=== PATIENT | male | born 1955 | race Caucasian/White ===

== ENCOUNTER 2017-08-30 12:13 | Emergency (ER) | payer OTHER ==
[~2017-08-30] VITALS: Ht 170.2 cm; Wt 65.8 kg
[2017-08-30 12:38] LABS: BASOPHILS ABSOLUTE AUTO 0.06 K/mm3 (0.00-0.23); BASOPHILS PERCENT AUTO 1 % (0-2); EOSINOPHILS ABSOLUTE AUTO 0.22 K/mm3 (0.00-0.68); EOSINOPHILS PERCENT AUTO 2 % (0-6); Hematocrit 41.2 % (37.0-53.0); Hemoglobin 13.4 g/dL (13.5-17.5); IMMATURE GRAN ABSOLUTE AUTO 0.02 K/mm3 (0.00-0.10); IMMATURE GRAN PERCENT AUTO 0 % (0-1); LYMPHOCYTES ABSOLUTE AUTO 2.14 K/mm3 (0.84-5.20); LYMPHOCYTES PERCENT AUTO 20 % (21-46); MONOCYTES ABSOLUTE AUTO 1.29 K/mm3 (0.16-1.47); MONOCYTES PERCENT AUTO 12 % (4-13); Mean Corpuscular HGB Conc 32.5 g/dL (31.5-36.5); Mean Corpuscular Volume 92 fL (80-100); Mean Platelet Volume 9.8 fL (9.1-12.4); NEUTROPHILS ABSOLUTE AUTO 7.17 K/mm3 (1.96-9.15); NEUTROPHILS PERCENT AUTO 66 % (41-73); Platelet Count 312 K/mm3 (150-400); RDW Coefficient Variation 12.1 % (11.7-14.2); RDW Standard Deviation 41.8 fL (35.1-46.3); Red Blood Cell Count 4.46 M/mm3 (4.30-5.90)
[2017-08-30 12:51] LABS: International Normalized Ratio 1.01; Prothrombin Time Results 10.5 Sec (9.7-11.5)
[2017-08-30 13:05] LABS: Alanine Aminotransfer (ALT/SGP 27 U/L (12-78); Albumin, Blood 4.6 g/dL (3.4-5.0); Albumin/Globulin Ratio 1.2 (0.8-1.8); Alk Phos 83 U/L (50-136); Anion Gap 7 mmol/L (6-16); Aspartate Aminotrans (AST/SGOT 31 U/L (12-37); Bilirubin, Total 0.7 mg/dL (0.1-1.0); Blood Urea Nitrogen 50 mg/dL (8-24); Bun/Creatinine Ratio 34.5 (12.0-20.0); CO2, Blood 34 mmol/L (21-32); Calcium, Blood 9.9 mg/dL (8.5-10.1); Chloride, Blood 100 mmol/L (98-108); Creatinine, Blood 1.45 mg/dL (0.60-1.20); Ethanol (Alcohol), Blood, Med <3 mg/dL; Globulin, Blood 3.8 g/dL (2.2-4.0); Glomerular Filtration Rate 53 (60-); Glucose, Blood 87 mg/dL (70-99); Sodium, Blood 141 mmol/L (136-145); Total Protein, Blood 8.4 g/dL (6.4-8.2)
== END 2017-08-30 15:28 | disposition home or self-care (01) ==
LOC: ER 12:13
PROVIDERS: Emergency Medicine
DX: S70.02XA Contusion of left hip, initial encounter (principal); S09.90XA Unspecified injury of head, initial encounter; S29.9XXA Unspecified injury of thorax, initial encounter; J44.9 Chronic obstructive pulmonary disease, unspecified; F41.9 Anxiety disorder, unspecified; V00.811A Fall from moving wheelchair (powered), initial encounter; Y92.410 Unspecified street and highway as the place of occurrence of the external cause
CPT/HCPCS: 36415; 70450; 71260; 72125; 74177; 80053; 83690; 85025; 85610; 85730; 86850; 86900; 86901; 99284; G0480; Q9967

== ENCOUNTER 2023-06-29 23:25 | Inpatient (IN) | payer MEDICARE, OTHER ==
[~2023-06-29] VITALS: Ht 165.1 cm; Wt 53.0 kg
[~2023-06-29 23:25] MED LIST: MUPIROCIN15 GM TOP; PRED20 PO
[2023-06-29 23:47] LABS: Bicarbonate Venous 43.5 mmol/L (24.0-30.0); PCO2 Venous > 104 mmHg (38-42); pH Blood Venous 7.29 (7.34-7.37)
[2023-06-29 23:48] LABS: Base Excess Venous 24.9 mmol/L
[2023-06-30 00:09] LABS: BASOPHILS ABSOLUTE AUTO 0.02 K/mm3 (0.00-0.23); BASOPHILS PERCENT AUTO 0 % (0-2); EOSINOPHILS ABSOLUTE AUTO 0.21 K/mm3 (0.00-0.68); EOSINOPHILS PERCENT AUTO 3 % (0-6); Hematocrit 38.8 % (37.0-53.0); Hemoglobin 11.5 g/dL (13.5-17.5); IMMATURE GRAN ABSOLUTE AUTO 0.02 K/mm3 (0.00-0.10); IMMATURE GRAN PERCENT AUTO 0 % (0-1); LYMPHOCYTES ABSOLUTE AUTO 1.24 K/mm3 (0.84-5.20); LYMPHOCYTES PERCENT AUTO 16 % (21-46); MONOCYTES ABSOLUTE AUTO 0.77 K/mm3 (0.16-1.47); MONOCYTES PERCENT AUTO 10 % (4-13); Mean Corpuscular HGB 30.1 pg (26.0-34.0); Mean Corpuscular HGB Conc 29.6 g/dL (31.5-36.5); Mean Corpuscular Volume 102 fL (80-100); Mean Platelet Volume 10.2 fL (9.1-12.4); NEUTROPHILS ABSOLUTE AUTO 5.58 K/mm3 (1.96-9.15); NEUTROPHILS PERCENT AUTO 71 % (41-73); Platelet Count 204 K/mm3 (150-400); RDW Coefficient Variation 11.9 % (11.7-14.2); RDW Standard Deviation 44.5 fL (35.1-46.3); Red Blood Cell Count 3.82 M/mm3 (4.30-5.90); White Blood Cell Count 7.84 K/mm3 (4.00-11.30)
[2023-06-30 00:40] LABS: Magnesium, Blood 2.1 mg/dL (1.6-2.4)
[2023-06-30 01:00] LABS: Alanine Aminotransfer (ALT/SGP 39 U/L (12-78); Albumin, Blood 3.7 g/dL (3.4-5.0); Alk Phos 76 U/L (50-136); Anion Gap Unable to Calculate mmol/L (6-16); Aspartate Aminotrans (AST/SGOT 28 U/L (12-37); Bilirubin, Total 0.2 mg/dL (0.1-1.0); Blood Urea Nitrogen 26 mg/dL (8-24); Bun/Creatinine Ratio 36.1 (12.0-20.0); CO2, Blood >45 mmol/L (21-32); Calcium, Blood 9.4 mg/dL (8.5-10.1); Chloride, Blood 92 mmol/L (98-108); Creatinine, Blood 0.72 mg/dL (0.60-1.20); Globulin, Blood 3.7 g/dL (2.2-4.0); Glomerular Filtration Rate 101 (60-); Glucose, Blood 124 mg/dL (70-99); Potassium, Blood 4.7 mmol/L (3.5-5.5); Sodium, Blood 139 mmol/L (136-145); Total Protein, Blood 7.4 g/dL (6.4-8.2)
--- NOTE | 2023-06-30 03:30 | NUR ---
ADMISSION REPORT RECIEVED FROM ER NURSE. PATIENT ARRIVES TO PCU ON BIPAP. TRANSFERRED TO PCU BED WITH ASSISTANCE OF ER NURSE, RT AND PCU STAFF. PATIENT ALERT AND ORIENTED x4, ANSWERING ALL QUESTIONS APPROPRIATELY. PATIENT WILL GET ANXIOUS AT TIMES BUT IS EASILY REDIRECTABLE. BP STABLE, TELE READING ST 100s. ON BIPAP WITH SPO2 >95. ORIENTED TO ROOM AND CALL LIGHT SYSTEM. SON AT BEDSIDE.
[2023-06-30 03:37] VITALS: BP 133/93
[2023-06-30] MEDS ORDERED: B-12500 MC2 PO (03:43)
[2023-06-30] MEDS ORDERED: Atarax10 MG PO (03:44)
[2023-06-30] MEDS ORDERED: ESCI10 PO (03:45)
[2023-06-30] MEDS ORDERED: THERA-D2000 UNIT PO (03:46)
[2023-06-30 05:40] LABS: Adenovirus Not Detected (NOT DETECT); Bordetella pertussis Not Detected (NOT DETECT); Chlamydophila pneumoniae Not Detected (NOT DETECT); Coronavirus 229E Not Detected (NOT DETECT); Coronavirus HKU1 Not Detected (NOT DETECT); Coronavirus NL63 Not Detected (NOT DETECT); Coronavirus OC43 Not Detected (NOT DETECT); Human Metapneumovirus Not Detected (NOT DETECT); Human Rhinovirus/Enterovirus Not Detected (NOT DETECT); Influenza A/2009-H1 Not Detected (NOT DETECT); Influenza A/H1 Not Detected (NOT DETECT); Influenza A/H3 Not Detected (NOT DETECT); Influenza B Not Detected (NOT DETECT); Mycoplasma pneumoniae Not Detected (NOT DETECT); Parainfluenza Virus 1 Not Detected (NOT DETECT); Parainfluenza Virus 2 Not Detected (NOT DETECT); Parainfluenza Virus 3 Not Detected (NOT DETECT); Parainfluenza Virus 4 Not Detected (NOT DETECT); Respiratory Syncytial Virus Not Detected (NOT DETECT); SARS-Cov-2 (COVID-19), BioFire Not Detected (NOT DETECT)
--- NOTE | 2023-06-30 06:07 | NUR ---
SHIFT SUMMARY PATIENT ALERT AND ORIENTED, ABLE TO MAKE NEEDS KNOWN TO STAFF. SON AT BEDSIDE. BP STABLE, PATIENT ON BIPAP SINCE ADMISSION, TOLERATING WELL, SPO2 >95%. NO CHANGES SINCE ADMISSION, SEE PREVIOUS NOTE. BED IN LOW POSITION, CALL LIGHT IN REACH.
[2023-06-30 07:06] LABS: Base Excess Venous 25.4 mmol/L; Bicarbonate Venous 46.7 mmol/L (24.0-30.0); PCO2 Venous 60.1 mmHg (38-42); pH Blood Venous 7.51 (7.34-7.37)
[2023-06-30 07:12] LABS: BASOPHILS ABSOLUTE AUTO 0.01 K/mm3 (0.00-0.23); BASOPHILS PERCENT AUTO 0 % (0-2); EOSINOPHILS PERCENT AUTO 0 % (0-6); Hematocrit 34.6 % (37.0-53.0); Hemoglobin 10.7 g/dL (13.5-17.5); IMMATURE GRAN ABSOLUTE AUTO 0.02 K/mm3 (0.00-0.10); IMMATURE GRAN PERCENT AUTO 0 % (0-1); LYMPHOCYTES ABSOLUTE AUTO 0.52 K/mm3 (0.84-5.20); LYMPHOCYTES PERCENT AUTO 7 % (21-46); MONOCYTES ABSOLUTE AUTO 0.06 K/mm3 (0.16-1.47); MONOCYTES PERCENT AUTO 1 % (4-13); Mean Corpuscular HGB 30.3 pg (26.0-34.0); Mean Corpuscular HGB Conc 30.9 g/dL (31.5-36.5); Mean Corpuscular Volume 98 fL (80-100); Mean Platelet Volume 10.3 fL (9.1-12.4); NEUTROPHILS ABSOLUTE AUTO 7.45 K/mm3 (1.96-9.15); NEUTROPHILS PERCENT AUTO 93 % (41-73); Platelet Count 198 K/mm3 (150-400); RDW Standard Deviation 43.6 fL (35.1-46.3); Red Blood Cell Count 3.53 M/mm3 (4.30-5.90); White Blood Cell Count 8.06 K/mm3 (4.00-11.30)
[2023-06-30 07:34] LABS: Albumin, Blood 3.6 g/dL (3.4-5.0); Bilirubin, Total 0.3 mg/dL (0.1-1.0); Bun/Creatinine Ratio 47.7 (12.0-20.0); Calcium, Blood 9.5 mg/dL (8.5-10.1); Creatinine, Blood 0.61 mg/dL (0.60-1.20); Globulin, Blood 3.7 g/dL (2.2-4.0); Potassium, Blood 5.6 mmol/L (3.5-5.5); Total Protein, Blood 7.3 g/dL (6.4-8.2)
[2023-06-30 07:49] VITALS: BP 107/70
[2023-06-30 12:13] VITALS: BP 122/78
--- NOTE | 2023-06-30 12:51 | NUR ---
CALL TO AT 1145 DUE TO T WAVE CHANGE ON ECG. ORDERS GIVEN FOR N/S AT 100ML/HOUR. EKG DONE AT BEDSIDE.
[2023-06-30 12:54] LABS: Bun/Creatinine Ratio 47.7 (12.0-20.0); Calcium, Blood 9.7 mg/dL (8.5-10.1); Creatinine, Blood 0.65 mg/dL (0.60-1.20); Potassium, Blood 5.4 mmol/L (3.5-5.5)
[2023-06-30 16:34] VITALS: BP 147/86
--- NOTE | 2023-06-30 18:13 | NUR ---
SHIFT SUMMARY PT A/AOX4. PT POLITE AND COOPERATIVE WITH CARE BUT FORGETS LIMITATIONS. VSS. PT EASILY AGITATED. PT WITH ONE EPISODE OF PANIC ATTACK PT REPORTS OCCURS FREQUENTLY. STAFF SUPPORTED PT WITH THERAPEUTIC TECHNIQUES. PT REPORTS HAS PANIC ATTACKS AT BASELINE. PT WITH N/S RUNNING AT 100ML/HR. NO ACUTE CHANGES. BREATHING EVEN AND UNLABORED AT REST.
[2023-06-30 19:30] VITALS: BP 119/81
[2023-06-30 23:07] VITALS: BP 118/76
[2023-07-01 04:50] VITALS: BP 131/86
[2023-07-01 05:15] LABS: Bun/Creatinine Ratio 49.8 (12.0-20.0); Calcium, Blood 9.3 mg/dL (8.5-10.1); Creatinine, Blood 0.62 mg/dL (0.60-1.20); Potassium, Blood 4.9 mmol/L (3.5-5.5)
--- NOTE | 2023-07-01 06:29 | NUR ---
SHIFT SUMMARY PATIENT ALERT, ORIENTED x3-4. ANXIOUS AT TIMES, ABLE TO MAKE NEEDS KNOWN. BP STABLE, TELE READING SR-ST. ON BASELINE 3-4L NC WITH SPO2 MID 90s. BIPAP AT BEDSIDE, PATIENT DECLINING TO WEAR. WILL DESAT WITH ACTIVITY. STANDBY ASSIST TO BATHROOM. PATIENT REFUSING TO USE URINAL FOR OUTPUT MEASUREMENTS AND WILL BECOME INCREASINGLY ANXIOUS WHEN ASKED TO. NO SIGNIFICANT CHANGES, WILL REPORT TO DAY SHIFT RN.
[2023-07-01 07:49] VITALS: BP 128/83
[2023-07-01] MEDS ORDERED: PRED20 PO (11:16)
[2023-07-01] MEDS ORDERED: ALBU90OI INH (11:17)
[2023-07-01] MEDS ORDERED: ANORO ELLIPTA1 EACH INH (11:18)
[2023-07-01] MEDS ORDERED: AZIT500 PO (11:18)
--- NOTE | 2023-07-01 12:40 | NUR ---
DISCHARGE: PT HAS BEEN CALM, ALERT, ORIENTED x4, COOPERATIVE W/CARE. O2 SATS >92% ON BASELINE O2 4-6 L/MIN VIA NC. PT HAS BEEN CLEARED FOR DISCHARGE. ALL IV ACCESS HAS BEEN DC'd, PT DRESSES SELF. PAPERWORK AND DC INSTRUCTIONS PROVIDED, ALL QUESTIONS HAVE BEEN ANSWERED. PT DEPARTS VIA W/C TRANSPORT W/OUT INCIDENT.
== END 2023-07-01 12:41 | disposition home or self-care (01) | DRG 189 ==
LOC: ER 23:25 → PCU 23:26
PROVIDERS: Family Medicine; Student in an Organized Health Care Education/Training Program; ADMIT Internal Medicine
PROC: 5A09357 Assistance with Respiratory Ventilation, Less than 24 Consecutive Hours, Continuous Positive Airway Pressure (ICD-10-PCS; principal; 2023-06-30)
DX: J96.21 Acute and chronic respiratory failure with hypoxia (principal); J44.1 Chronic obstructive pulmonary disease with (acute) exacerbation; E87.1 Hypo-osmolality and hyponatremia; E87.29 Other acidosis; J96.22 Acute and chronic respiratory failure with hypercapnia; E87.5 Hyperkalemia; J43.9 Emphysema, unspecified; Z99.81 Dependence on supplemental oxygen; Z79.52 Long term (current) use of systemic steroids; Z87.891 Personal history of nicotine dependence; Z11.52 Encounter for screening for COVID-19
CPT/HCPCS: 0202U; 36415; 71045; 80048; 80053; 82803; 83735; 83880; 85025; 87070; 87205; 93005; 93010; 94640; 94644; 94660; 94664; 94762; 96365; 96375; 99285-25; A9270; J0456; J1650; J2930; J7030; J7050; J7512

== ENCOUNTER 2023-09-01 00:58 | Inpatient (IN) | payer MEDICARE, OTHER ==
[~2023-09-01] VITALS: Ht 185.4 cm; Wt 47.0 kg
[2023-09-01] VITALS (17 sets, daily range): BP systolic 128–174; BP diastolic 78–114
[~2023-09-01 00:58] MED LIST changes: +ALBU90OI INH; +ANORO ELLIPTA1 EACH INH; +AZIT500 PO; +Atarax10 MG PO; +B-12500 MC2 PO; +ESCI10 PO; +THERA-D2000 UNIT PO
[2023-09-01 01:34] LABS: Base Excess Venous 27.6 mmol/L; Bicarbonate Venous 46.7 mmol/L (24.0-30.0)
[2023-09-01 01:35] LABS: pH Blood Venous 7.25 (7.34-7.37)
[2023-09-01 02:05] LABS: BASOPHILS ABSOLUTE AUTO 0.01 K/mm3 (0.00-0.23); BASOPHILS PERCENT AUTO 0 % (0-2); EOSINOPHILS ABSOLUTE AUTO 0.14 K/mm3 (0.00-0.68); EOSINOPHILS PERCENT AUTO 2 % (0-6); Hematocrit 37.7 % (37.0-53.0); IMMATURE GRAN ABSOLUTE AUTO 0.01 K/mm3 (0.00-0.10); IMMATURE GRAN PERCENT AUTO 0 % (0-1); LYMPHOCYTES ABSOLUTE AUTO 0.85 K/mm3 (0.84-5.20); LYMPHOCYTES PERCENT AUTO 14 % (21-46); MONOCYTES ABSOLUTE AUTO 0.51 K/mm3 (0.16-1.47); MONOCYTES PERCENT AUTO 8 % (4-13); Mean Corpuscular HGB 31.3 pg (26.0-34.0); Mean Corpuscular HGB Conc 29.2 g/dL (31.5-36.5); Mean Corpuscular Volume 107 fL (80-100); Mean Platelet Volume 10.4 fL (9.1-12.4); NEUTROPHILS ABSOLUTE AUTO 4.62 K/mm3 (1.96-9.15); NEUTROPHILS PERCENT AUTO 75 % (41-73); Platelet Count 186 K/mm3 (150-400); RDW Coefficient Variation 12.2 % (11.7-14.2); RDW Standard Deviation 47.9 fL (35.1-46.3); Red Blood Cell Count 3.52 M/mm3 (4.30-5.90); White Blood Cell Count 6.14 K/mm3 (4.00-11.30)
[2023-09-01 02:18] LABS: Magnesium, Blood 2.2 mg/dL (1.6-2.4)
[2023-09-01 02:21] LABS: Alanine Aminotransfer (ALT/SGP 23 U/L (12-78); Albumin, Blood 3.6 g/dL (3.4-5.0); Alk Phos 61 U/L (50-136); Anion Gap Unable to Calculate mmol/L (6-16); Aspartate Aminotrans (AST/SGOT 24 U/L (12-37); Bilirubin, Total 0.2 mg/dL (0.1-1.0); Blood Urea Nitrogen 20 mg/dL (8-24); Bun/Creatinine Ratio 28.5 (12.0-20.0); CO2, Blood >45 mmol/L (21-32); Calcium, Blood 9.7 mg/dL (8.5-10.1); Chloride, Blood 94 mmol/L (98-108); Globulin, Blood 3.5 g/dL (2.2-4.0); Glomerular Filtration Rate 102 (60-); Glucose, Blood 157 mg/dL (70-99); Sodium, Blood 142 mmol/L (136-145); Total Protein, Blood 7.1 g/dL (6.4-8.2)
[2023-09-01 02:24] LABS: Base Excess Venous 25.6 mmol/L; Bicarbonate Venous 44.8 mmol/L (24.0-30.0); pH Blood Venous 7.18 (7.34-7.37)
[2023-09-01 02:25] LABS: PCO2 Venous > 104 mmHg (38-42)
[2023-09-01 02:26] LABS: PCO2 Venous > 104 mmHg (38-42)
[2023-09-01 06:33] LABS: Base Excess Venous 26.1 mmol/L; Bicarbonate Venous 46.3 mmol/L (24.0-30.0); PCO2 Venous 103 mmHg (38-42); pH Blood Venous 7.31 (7.34-7.37)
--- NOTE | 2023-09-01 07:40 | NUR ---
ADMISSION: Pt to ICU 9 from ER at 0740. He arrived with BIPAP in place and ambulated from stretcher to hospital bed.
[2023-09-01] MEDS ORDERED: Selenomax200 MCG PO (07:52)
[2023-09-01] MEDS ORDERED: [UNRECOGNIZED DRUG - OTHER] (07:53)
[2023-09-01] MEDS ORDERED: [UNRECOGNIZED DRUG - OTHER] (07:53)
--- NOTE | 2023-09-01 10:39 | NUR ---
UPDATE: PT RESTLESS IN BED. HE WAS ASKED TO LAY WITH HIS HEAD ON THE PILLOW, HE HAS BEEN ROTATING AND LAYING SIDEWAYS TO WATCH THE SP02 MONITOR. BED HAS BEEN ROTATED FOR PT TO VISUALIZE MONITOR. HE HAS BEEN PULLING BIPAP OFF FACE AND ASKES, "WHAT ARE YOU TRYING TO TEACH ME WITH THIS MASK?" PT EDUCATED ON MEDICAL EQUIPMENT AND TREATMENT PLAN. HE WAS INFORMED THAT STAFF ARE TRYING TO KEEP HIM SAFE AND THE BIPAP IS TO HELP HIM. AT THIS TIME HE IS POINTING IN THE AIR AND MAKING GESTURES WITH HIS HANDS.
[2023-09-01 12:11] LABS: U Amphetamine Screen DETECTED; U Barbituate Screen Not Detected; U Benzodiazapine Screen Not Detected; U Buprenorphine Screen Not Detected; U Cannabinoids Screen Not Detected; U Cocaine Screen Not Detected; U Methadone Screen Not Detected; U Methamphetamine Screen DETECTED; U Opiates Screen Not Detected; U Oxycodone Screen Not Detected; U Phencyclidine Screen Not Detected
--- NOTE | 2023-09-01 18:41 | NUR ---
GRIFFIN SUMMARY: Pt admitted to ICU this morning from ER. He has since been titrated down to his home dose of O2 at 4L NC. Pt is ambulatory and stands at bedside to void with standby assist. Cooperative with care, but inquires about discharge frequently. Pt reports frustration that he has paid for a motel room and his family is "living it up at the [place]" and he does not able to partake. He is very impulsive and appears intermittantly to be visually hallucinating. Pt points to ceiling and waves hands in air when unsupervised in room. Flight of ideas present. Good PO intake. Significant other and son at bedside this morning to receive updates.
--- NOTE | 2023-09-02 00:06 | NUR ---
REPORT CALLED TO 301 RN, PT TRANSFERRED TO 301 VIA WHEELCHAIR W/OXYGEN AND BELONGINGS WELL CHART. PT IS IN NO DISTRESS W/NO COMPLAINTS AT THE CURRENT TIME. PT ASSISTED TO BED, 301 RN AT BEDSIDE.
[2023-09-02 00:57] VITALS: BP 145/91
--- NOTE | 2023-09-02 01:02 | NUR ---
Patient was received from ICU 9 via W/C. Patient is pleasant, alert and oriened. He was oriented to room. Ignition safety discussed, patient denies any ignition sources. Pt is on 6 L O2 at this time. Lungs are clear, no wheezes, sl dim in bases. Pt is no longer on tele but HR is tachy., rate 108. patient skin is intact. Pulses present radial > pedal. Patients feet are very sensative. Pt has poor dentation. He was given a sandwich for a snack. No c/o pain. Urinal at bedside and bed alarm on for safety. Pt reminded to call before getting up. Will continue to monitor.
[2023-09-02 03:21] VITALS: BP 133/73
--- NOTE | 2023-09-02 06:43 | NUR ---
Rn shift summary: Patient has rested without complaint. This am at 0600, pt found to have O2 off while sleeping. Biox going off, sats mid 70's, O2 6 liters replaced, recoved in 1 minute, O2 sats 94%. Will trial O2 at 5 liters due to COPD. Pt had spilled pepsi in bed, top linens changed. Pt denies any pain or feelings of SOB. CAll light is in reach. Bed alarm is on. Will continue to monitor.
[2023-09-02 07:44] VITALS: BP 138/100
[2023-09-02 08:12] LABS: PCO2 Arterial 76.8 mmHg (35-45); PO2 Arterial 55.6 mmHg (80-100); pH Blood Arterial 7.41 (7.35-7.45)
[2023-09-02 08:41] LABS: Blood Urea Nitrogen 19 mg/dL (8-24); Bun/Creatinine Ratio 32.9 (12.0-20.0); Calcium, Blood 9.4 mg/dL (8.5-10.1); Chloride, Blood 91 mmol/L (98-108); Creatinine, Blood 0.58 mg/dL (0.60-1.20); Glomerular Filtration Rate 108 (60-); Glucose, Blood 133 mg/dL (70-99); Potassium, Blood 5.2 mmol/L (3.5-5.5); Sodium, Blood 134 mmol/L (136-145)
[2023-09-02 08:55] LABS: Anion Gap Unable to Calculate mmol/L (6-16)
[2023-09-02 08:57] LABS: CO2, Blood >45 mmol/L (21-32)
[2023-09-02 15:50] VITALS: BP 130/91
--- NOTE | 2023-09-02 16:39 | NUR ---
PATIENT A/OX4, UP WITH SBA. CONTINUES ON 4-5LO2 TO MAINTAIN SATS. ATIVAN GIVEN X1 TODAY WHICH REALLY HELPED TO CALM PATIENT. VSS. RECEIVING IV ABX AND STEROIDS. DENIES ANY PAIN. GOOD APPETITE TODAY AND FINISHED ALL MEALS. NO NEW CONCERNS THIS SHIFT. SON RENATE WAS AT BEDSIDE AND LEFT HIS NUMBER ON THE BOARD. HE IS INVOLVED WITH HIS FATHERS CARE AND WILL BE HIS RIDE HOME WHEN STABLE.
[2023-09-02 20:47] VITALS: BP 148/76
[2023-09-03 03:14] VITALS: BP 151/137
[2023-09-03 06:26] LABS: Anion Gap Unable to Calculate mmol/L (6-16); Blood Urea Nitrogen 33 mg/dL (8-24); Bun/Creatinine Ratio 47.8 (12.0-20.0); CO2, Blood 43 mmol/L (21-32); Calcium, Blood 9.3 mg/dL (8.5-10.1); Chloride, Blood 94 mmol/L (98-108); Creatinine, Blood 0.69 mg/dL (0.60-1.20); Glomerular Filtration Rate 102 (60-); Glucose, Blood 148 mg/dL (70-99); Sodium, Blood 136 mmol/L (136-145)
--- NOTE | 2023-09-03 06:38 | NUR ---
PATIENT IS ALERT AND ORIENTED X3, ON CONTINUOUS BIOX. WITH PIV LINE AT RIGHT AC PATENT AND INTACT. NEEDS ATTENDED. CALL LIGHT WITHIN PATIENT'S REACH. WILL CONTINUE TO MONITOR
[2023-09-03 07:19] VITALS: BP 129/79
[2023-09-03 08:44] VITALS: BP 183/144
[2023-09-03] MEDS ORDERED: DILT60ER PO (12:49)
[2023-09-03] MEDS ORDERED: IPRAT-ALBUT 0.5-3 ML INH (12:50)
[2023-09-03] MEDS ORDERED: PRED20 PO (12:51)
[2023-09-03] MEDS ORDERED: AZIT500 PO (12:52)
== END 2023-09-03 13:31 | disposition home or self-care (01) | DRG 189 ==
LOC: ER 00:58 → MEDS 04:02 → ICUE 04:02 → ERHOLD 04:02 → ICUE 07:00 → MEDS 23:57 → ENPENDDIS 09-03 10:22 → MEDS 09-03 13:31
PROVIDERS: Family Medicine; Internal Medicine; Student in an Organized Health Care Education/Training Program; ADMIT Internal Medicine
PROC: 5A09357 Assistance with Respiratory Ventilation, Less than 24 Consecutive Hours, Continuous Positive Airway Pressure (ICD-10-PCS; principal; 2023-09-01)
PROC: 4A033R1 Measurement of Arterial Saturation, Peripheral, Percutaneous Approach (ICD-10-PCS; 2023-09-02)
DX: J96.21 Acute and chronic respiratory failure with hypoxia (principal); G93.41 Metabolic encephalopathy; J44.1 Chronic obstructive pulmonary disease with (acute) exacerbation; Z59.01 Sheltered homelessness; J96.22 Acute and chronic respiratory failure with hypercapnia; E86.0 Dehydration; R94.31 Abnormal electrocardiogram [ECG] [EKG]; F15.90 Other stimulant use, unspecified, uncomplicated; I10 Essential (primary) hypertension; J43.9 Emphysema, unspecified; Z99.81 Dependence on supplemental oxygen; Z87.891 Personal history of nicotine dependence; Z79.52 Long term (current) use of systemic steroids
CPT/HCPCS: 36415; 36600; 71045; 80048; 80053; 82803; 83735; 84145; 85025; 93005; 93010; 94640; 94644; 94660; 94664; 94760; 94762; 96365; 96375; 96376; 99285-25; A9270; J0456; J1650; J2930; J7030; J7050; J7512

== ENCOUNTER 2023-09-11 12:35 | Emergency (ER) | payer MEDICARE, OTHER ==
[~2023-09-11] VITALS: Ht 172.7 cm; Wt 72.6 kg
[~2023-09-11 12:35] MED LIST changes: +DILT60ER PO; +IPRAT-ALBUT 0.5-3 ML INH; +Selenomax200 MCG PO; +[UNRECOGNIZED DRUG - OTHER]; +[UNRECOGNIZED DRUG - OTHER]
[2023-09-11] MEDS ORDERED: PredniSONE 20 MG Tab PO ONE (13:15)
[2023-09-11] MEDS ORDERED: Ipratropium/Albuterol SulF 2.5-0.5MG/3 ML Amp INH ONE (13:15)
[2023-09-11] MEDS ORDERED: Albuterol 2.5 MG/3 ML VIAL INH SCH (13:15)
[2023-09-11] MEDS ORDERED: Doxycycline Hyclate 100 MG TAB PO ONE (13:15)
[2023-09-11 13:22] LABS: BASOPHILS ABSOLUTE AUTO 0.01 K/mm3 (0.00-0.23); BASOPHILS PERCENT AUTO 0 % (0-2); EOSINOPHILS ABSOLUTE AUTO 0.01 K/mm3 (0.00-0.68); EOSINOPHILS PERCENT AUTO 0 % (0-6); Hematocrit 36.9 % (37.0-53.0); Hemoglobin 10.7 g/dL (13.5-17.5); IMMATURE GRAN ABSOLUTE AUTO 0.07 K/mm3 (0.00-0.10); IMMATURE GRAN PERCENT AUTO 1 % (0-1); LYMPHOCYTES ABSOLUTE AUTO 0.87 K/mm3 (0.84-5.20); LYMPHOCYTES PERCENT AUTO 8 % (21-46); MONOCYTES ABSOLUTE AUTO 1.37 K/mm3 (0.16-1.47); MONOCYTES PERCENT AUTO 12 % (4-13); Mean Corpuscular HGB 30.3 pg (26.0-34.0); Mean Corpuscular Volume 105 fL (80-100); Mean Platelet Volume 10.5 fL (9.1-12.4); NEUTROPHILS PERCENT AUTO 80 % (41-73); Platelet Count 236 K/mm3 (150-400); RDW Coefficient Variation 12.2 % (11.7-14.2); RDW Standard Deviation 47.3 fL (35.1-46.3); Red Blood Cell Count 3.53 M/mm3 (4.30-5.90); White Blood Cell Count 11.63 K/mm3 (4.00-11.30)
[2023-09-11 13:36] LABS: Magnesium, Blood 2.1 mg/dL (1.6-2.4)
[2023-09-11 13:40] LABS: Alanine Aminotransfer (ALT/SGP 54 U/L (12-78); Albumin, Blood 3.4 g/dL (3.4-5.0); Alk Phos 57 U/L (50-136); Anion Gap Unable to Calculate mmol/L (6-16); Aspartate Aminotrans (AST/SGOT 26 U/L (12-37); Bilirubin, Total 0.3 mg/dL (0.1-1.0); Blood Urea Nitrogen 29 mg/dL (8-24); Bun/Creatinine Ratio 52.9 (12.0-20.0); CO2, Blood >45 mmol/L (21-32); Calcium, Blood 9.8 mg/dL (8.5-10.1); Chloride, Blood 91 mmol/L (98-108); Creatinine, Blood 0.55 mg/dL (0.60-1.20); Globulin, Blood 3.4 g/dL (2.2-4.0); Glomerular Filtration Rate 109 (60-); Glucose, Blood 115 mg/dL (70-99); Potassium, Blood 5.5 mmol/L (3.5-5.5); Sodium, Blood 135 mmol/L (136-145); Total Protein, Blood 6.8 g/dL (6.4-8.2)
[2023-09-11 13:46] LABS: Base Excess Venous 27.2 mmol/L; Bicarbonate Venous 47.3 mmol/L (24.0-30.0); PCO2 Venous 96.3 mmHg (38-42); pH Blood Venous 7.35 (7.34-7.37)
[2023-09-11] MEDS ORDERED: PRED20 PO (14:30)
[2023-09-11] MEDS ORDERED: DOXY100 PO (14:30)
[2023-09-11 14:31] VITALS: BP 144/87
== END 2023-09-11 16:00 | disposition home or self-care (01) ==
LOC: ER 12:35
PROVIDERS: Student in an Organized Health Care Education/Training Program
DX: J43.9 Emphysema, unspecified (principal); J96.12 Chronic respiratory failure with hypercapnia; J96.11 Chronic respiratory failure with hypoxia; Z79.899 Other long term (current) drug therapy; Z87.891 Personal history of nicotine dependence; Z99.81 Dependence on supplemental oxygen
CPT/HCPCS: 71045; 80053; 82803; 83735; 85025; 93005; 93010; 94644; 94664; 99285-25; A9270; J7512

== ENCOUNTER 2024-01-17 20:11 | Observation (INO) | payer MEDICARE, OTHER ==
[~2024-01-17] VITALS: Ht 167.6 cm; Wt 50.0 kg
[~2024-01-17 20:11] MED LIST changes: +DOXY100 PO
[2024-01-17] MEDS ORDERED: CITALOPRAM HBR10 MG PO (20:30)
[2024-01-17 20:32] LABS: BASOPHILS ABSOLUTE AUTO 0.02 K/mm3 (0.00-0.23); BASOPHILS PERCENT AUTO 0 % (0-2); EOSINOPHILS ABSOLUTE AUTO 0.13 K/mm3 (0.00-0.68); EOSINOPHILS PERCENT AUTO 2 % (0-6); Hematocrit 37.2 % (37.0-53.0); Hemoglobin 10.9 g/dL (13.5-17.5); IMMATURE GRAN ABSOLUTE AUTO 0.01 K/mm3 (0.00-0.10); IMMATURE GRAN PERCENT AUTO 0 % (0-1); LYMPHOCYTES ABSOLUTE AUTO 0.95 K/mm3 (0.84-5.20); LYMPHOCYTES PERCENT AUTO 18 % (21-46); MONOCYTES PERCENT AUTO 9 % (4-13); Mean Corpuscular HGB 29.9 pg (26.0-34.0); Mean Corpuscular HGB Conc 29.3 g/dL (31.5-36.5); Mean Corpuscular Volume 102 fL (80-100); Mean Platelet Volume 10.2 fL (9.1-12.4); NEUTROPHILS ABSOLUTE AUTO 3.75 K/mm3 (1.96-9.15); NEUTROPHILS PERCENT AUTO 70 % (41-73); Platelet Count 175 K/mm3 (150-400); RDW Coefficient Variation 12.5 % (11.7-14.2); RDW Standard Deviation 47.4 fL (35.1-46.3); Red Blood Cell Count 3.65 M/mm3 (4.30-5.90); White Blood Cell Count 5.36 K/mm3 (4.00-11.30)
[2024-01-17 20:58] LABS: Alanine Aminotransfer (ALT/SGP 13 U/L (12-78); Albumin, Blood 3.6 g/dL (3.4-5.0); Alk Phos 66 U/L (50-136); Aspartate Aminotrans (AST/SGOT 16 U/L (12-37); Bilirubin, Total 0.2 mg/dL (0.1-1.0); Blood Urea Nitrogen 19 mg/dL (8-24); Bun/Creatinine Ratio 29.7 (12.0-20.0); Calcium, Blood 9.4 mg/dL (8.5-10.1); Chloride, Blood 93 mmol/L (98-108); Creatinine, Blood 0.64 mg/dL (0.60-1.20); Globulin, Blood 3.5 g/dL (2.2-4.0); Glomerular Filtration Rate 104 (60-); Glucose, Blood 136 mg/dL (70-99); Potassium, Blood 4.8 mmol/L (3.5-5.5); Sodium, Blood 144 mmol/L (136-145); Total Protein, Blood 7.1 g/dL (6.4-8.2)
[2024-01-17 21:01] LABS: Anion Gap Unable to Calculate mmol/L (3-11); CO2, Blood >45 mmol/L (21-32)
[2024-01-17 21:18] LABS: Base Excess Venous 29.9 mmol/L; Bicarbonate Venous 49.6 mmol/L (24.0-30.0); PCO2 Venous > 105 mmHg (38-42); pH Blood Venous 7.32 (7.34-7.37)
[2024-01-18] MEDS ORDERED: Magnesium Hydroxide Conc 10 ML UDC PO PRN (02:00)
[2024-01-18] MEDS ORDERED: Albuterol HFA200 ACT/6.7 GM INH INH SCH (02:35)
[2024-01-18] MEDS ORDERED: NS 1,000 ML IV ONE (02:45)
[2024-01-18 03:10] VITALS: BP 141/86
[2024-01-18] MEDS ORDERED: Albuterol HFA200 ACT/6.7 GM INH INH PRN (03:20)
[2024-01-18] MEDS ORDERED: Ipratropium/Albuterol SulF 2.5-0.5MG/3 ML Amp INH SCH ×2 (03:20→06:00)
[2024-01-18 04:02] VITALS: BP 130/88
--- NOTE | 2024-01-18 04:40 | NUR ---
ADMIT TO MEDICAL FLOOR PT ARRIVED TO RM 306 AT 0315 VIA GURNEY, 4L O2. SO AT BEDSIDE. NO COMPLAINTS OR SIGNS OF ACUTE DISTRESS. SEE ADMISSION ASSESSMENT AND VITALS FLOW SHEET. BED ALARM ACTIVATED AND CALL LIGHT WITHIN REACH.
--- NOTE | 2024-01-18 04:46 | NUR ---
NOC SHIFT SUMMARY PT ADMITTED TO 306 WITH SO AT BEDSIDE. ADMISSION ASSESSMENT COMPLETED. PT IS LIVING IN A TENT AND USING 5-6L OF OXYGEN. HE CAN STAND AND TRANSFER INTO A WHEELCHAIR AT BASELINE BUT IS UNABLE TO TAKE MORE THAN A FEW STEPS. IVF STARTED. PT WAS WEAK AND SHAKING UPON STANDING FOR ORTHOSTATIC VITAL SIGNS. ORTHOS NEGATIVE.
[2024-01-18 05:33] LABS: BASOPHILS ABSOLUTE AUTO 0.02 K/mm3 (0.00-0.23); BASOPHILS PERCENT AUTO 0 % (0-2); EOSINOPHILS ABSOLUTE AUTO 0.14 K/mm3 (0.00-0.68); EOSINOPHILS PERCENT AUTO 2 % (0-6); Hematocrit 36.9 % (37.0-53.0); Hemoglobin 10.8 g/dL (13.5-17.5); IMMATURE GRAN ABSOLUTE AUTO 0.01 K/mm3 (0.00-0.10); IMMATURE GRAN PERCENT AUTO 0 % (0-1); LYMPHOCYTES ABSOLUTE AUTO 1.28 K/mm3 (0.84-5.20); LYMPHOCYTES PERCENT AUTO 18 % (21-46); MONOCYTES ABSOLUTE AUTO 0.69 K/mm3 (0.16-1.47); MONOCYTES PERCENT AUTO 10 % (4-13); Mean Corpuscular HGB 29.8 pg (26.0-34.0); Mean Corpuscular HGB Conc 29.3 g/dL (31.5-36.5); Mean Corpuscular Volume 102 fL (80-100); Mean Platelet Volume 10.5 fL (9.1-12.4); NEUTROPHILS ABSOLUTE AUTO 4.91 K/mm3 (1.96-9.15); NEUTROPHILS PERCENT AUTO 70 % (41-73); Platelet Count 165 K/mm3 (150-400); RDW Coefficient Variation 12.5 % (11.7-14.2); RDW Standard Deviation 47.3 fL (35.1-46.3); Red Blood Cell Count 3.63 M/mm3 (4.30-5.90); White Blood Cell Count 7.05 K/mm3 (4.00-11.30)
[2024-01-18 06:03] LABS: Thyroid Stimulating Hormone 0.713 uIU/mL (0.360-4.800)
[2024-01-18 06:09] LABS: Albumin, Blood 3.5 g/dL (3.4-5.0); Blood Urea Nitrogen 22 mg/dL (8-24); Calcium, Blood 9.3 mg/dL (8.5-10.1); Chloride, Blood 92 mmol/L (98-108); Creatinine, Blood 0.59 mg/dL (0.60-1.20); Glomerular Filtration Rate 107 (60-); Glucose, Blood 128 mg/dL (70-99); Phosphorus, Blood 3.1 mg/dL (2.5-4.9); Potassium, Blood 4.6 mmol/L (3.5-5.5); Sodium, Blood 139 mmol/L (136-145)
[2024-01-18 06:10] LABS: Anion Gap Unable to Calculate mmol/L (3-11)
[2024-01-18 06:11] LABS: CO2, Blood >45 mmol/L (21-32)
[2024-01-18 07:32] VITALS: BP 148/92
[2024-01-18] MEDS ORDERED: Enoxaparin 40 MG/0.4 ML SYR SC SCH (09:00)
[2024-01-18] MEDS ORDERED: Citalopram Hydrobromide 10 MG TAB PO SCH (09:00)
[2024-01-18] MEDS ORDERED: ANORO ELLIPTA1 EACH INH (15:50)
--- NOTE | 2024-01-18 18:01 | NUR ---
DISCHARGE SUMMARY PATIENT DISCHARGED THIS SHIFT BACK TO [facility]. MEDS FAXED TO [facility] ALSO SENT WITH PATIENT IF THEY DECIDE TO USE [facility] AT THE [place] SAT[facility]. SENT IN TAXI WITH HOSPITAL OXYGEN TO BE RETURNED BY EVALUATION ENGINEER WHEN PATIENT DELIVERED. DISCHARGE PACKET GIVEN AND REVIEWED, VERBALIZED UNDERSTANDING. IV REMOVED WITHOUT COMPLICATION. CM PROVIDED LIST OF COMMUNITY RESOURCES.
== END 2024-01-18 16:49 | disposition home or self-care (01) ==
LOC: ER 20:11 → MEDS 20:12 → ENPENDDIS 01-18 16:00 → MEDS 01-18 16:49
PROVIDERS: Family Medicine; Physician Assistant; Student in an Organized Health Care Education/Training Program; ADMIT Internal Medicine
DX: S09.90XA Unspecified injury of head, initial encounter (principal); R10.9 Unspecified abdominal pain; J43.8 Other emphysema; J44.9 Chronic obstructive pulmonary disease, unspecified; J96.22 Acute and chronic respiratory failure with hypercapnia; J96.21 Acute and chronic respiratory failure with hypoxia; Z59.01 Sheltered homelessness; Z99.81 Dependence on supplemental oxygen; Z87.891 Personal history of nicotine dependence; W17.89XA Other fall from one level to another, initial encounter
CPT/HCPCS: 36415; 70450; 71045; 74177; 80053; 80069; 82803; 83690; 83735; 83880; 84443; 84484; 85025; 93005; 93010; 93306; 94640; 94664; 94762; 96372; 99285-25; A9270; G0378; J1650; J7030; Q9967

== ENCOUNTER 2024-01-24 10:01 | Emergency (ER) | payer MEDICARE, OTHER ==
[~2024-01-24] VITALS: Ht 167.6 cm; Wt 52.2 kg
[~2024-01-24 10:01] MED LIST changes: +CITALOPRAM HBR10 MG PO
[2024-01-24] MEDS ORDERED: Ipratropium/Albuterol SulF 2.5-0.5MG/3 ML Amp INH ONE (10:20)
[2024-01-24] MEDS ORDERED: Albuterol 2.5 MG/3 ML VIAL INH SCH (10:20)
[2024-01-24] MEDS ORDERED: Ketorolac Tromethamine 30mg Vial IV ONE (10:20)
[2024-01-24] MEDS ORDERED: PredniSONE 20 MG Tab PO ONE (10:20)
[2024-01-24] MEDS ORDERED: Azithromycin 250 MG Tab PO ONE (10:45)
[2024-01-24] MEDS ORDERED: AZIT250 PO (13:55)
[2024-01-24] MEDS ORDERED: TIOT18 INH (13:55)
[2024-01-24] MEDS ORDERED: ALBU90OI INH (13:55)
[2024-01-24 16:12] VITALS: BP 112/76
== END 2024-01-24 16:13 | disposition home or self-care (01) ==
LOC: ER 10:01
DX: J44.1 Chronic obstructive pulmonary disease with (acute) exacerbation (principal); Z87.891 Personal history of nicotine dependence; Z79.899 Other long term (current) drug therapy
CPT/HCPCS: 71045; 93005; 93010; 94644; 94664; 99285-25; A9270; J1885; J7512

== ENCOUNTER 2024-01-28 12:50 | Emergency (ER) | payer MEDICARE, OTHER ==
[~2024-01-28] VITALS: Ht 167.6 cm; Wt 54.4 kg
[~2024-01-28 12:50] MED LIST changes: +AZIT250 PO; +TIOT18 INH
[2024-01-28] MEDS ORDERED: Albuterol 2.5 MG/3 ML VIAL INH SCH (13:05)
[2024-01-28] MEDS ORDERED: MethylPREDNISolone Sod Succ 125 MG Vial IV ONE (13:05)
[2024-01-28] MEDS ORDERED: Ketorolac Tromethamine 30mg Vial IV ONE (13:05)
[2024-01-28] MEDS ORDERED: Ipratropium Bromide INH 0.02% 0.5 mg/2.5ML Vial INH SCH (13:05)
[2024-01-28 13:24] LABS: BASOPHILS ABSOLUTE AUTO 0.02 K/mm3 (0.00-0.23); BASOPHILS PERCENT AUTO 0 % (0-2); EOSINOPHILS PERCENT AUTO 3 % (0-6); Hematocrit 40.2 % (37.0-53.0); Hemoglobin 12.2 g/dL (13.5-17.5); IMMATURE GRAN ABSOLUTE AUTO 0.01 K/mm3 (0.00-0.10); IMMATURE GRAN PERCENT AUTO 0 % (0-1); LYMPHOCYTES PERCENT AUTO 13 % (21-46); MONOCYTES ABSOLUTE AUTO 0.75 K/mm3 (0.16-1.47); MONOCYTES PERCENT AUTO 10 % (4-13); Mean Corpuscular HGB 29.8 pg (26.0-34.0); Mean Corpuscular HGB Conc 30.3 g/dL (31.5-36.5); Mean Corpuscular Volume 98 fL (80-100); Mean Platelet Volume 9.8 fL (9.1-12.4); NEUTROPHILS ABSOLUTE AUTO 5.57 K/mm3 (1.96-9.15); NEUTROPHILS PERCENT AUTO 74 % (41-73); Platelet Count 214 K/mm3 (150-400); RDW Coefficient Variation 12.7 % (11.7-14.2); RDW Standard Deviation 45.9 fL (35.1-46.3); White Blood Cell Count 7.55 K/mm3 (4.00-11.30)
[2024-01-28 14:02] LABS: Alanine Aminotransfer (ALT/SGP 17 U/L (12-78); Albumin, Blood 3.8 g/dL (3.4-5.0); Alk Phos 80 U/L (50-136); Aspartate Aminotrans (AST/SGOT 18 U/L (12-37); Bilirubin, Total 0.2 mg/dL (0.1-1.0); Blood Urea Nitrogen 18 mg/dL (8-24); Calcium, Blood 9.7 mg/dL (8.5-10.1); Chloride, Blood 92 mmol/L (98-108); Creatinine, Blood 0.58 mg/dL (0.60-1.20); Globulin, Blood 3.7 g/dL (2.2-4.0); Glomerular Filtration Rate 108 (60-); Glucose, Blood 103 mg/dL (70-99); Potassium, Blood 4.7 mmol/L (3.5-5.5); Sodium, Blood 136 mmol/L (136-145); Total Protein, Blood 7.5 g/dL (6.4-8.2)
[2024-01-28 14:03] LABS: Anion Gap Unable to Calculate mmol/L (3-11)
[2024-01-28 14:04] LABS: CO2, Blood >45 mmol/L (21-32)
[2024-01-28 15:30] VITALS: BP 148/98
== END 2024-01-28 18:20 | disposition home or self-care (01) ==
LOC: ER 12:50
PROVIDERS: Emergency Medicine
DX: S20.212A Contusion of left front wall of thorax, initial encounter (principal); J44.1 Chronic obstructive pulmonary disease with (acute) exacerbation; W01.198A Fall on same level from slipping, tripping and stumbling with subsequent striking against other object, initial encounter; Z87.891 Personal history of nicotine dependence; Z79.899 Other long term (current) drug therapy
CPT/HCPCS: 71101; 80053; 85025; 93005; 93010; 94644; 94664; 96374; 96375; 99285-25; J1885; J2919

== ENCOUNTER 2024-02-06 11:46 | Observation (INO) | payer OTHER, MEDICARE ==
[~2024-02-06] VITALS: Ht 170.2 cm; Wt 61.2 kg
[2024-02-06] MEDS ORDERED: Albuterol 2.5 MG/3 ML VIAL INH SCH ×2 (12:35→14:00)
[2024-02-06] MEDS ORDERED: PredniSONE 20 MG Tab PO ONE (12:35)
[2024-02-06] MEDS ORDERED: Ipratropium/Albuterol SulF 2.5-0.5MG/3 ML Amp INH ONE (12:35)
--- NOTE | 2024-02-07 14:35 | NUR ---
Met with the patient this afternoon. He is a 68 year old man with stage 4 COPD who was brought in with SOB and anxiety. He was given an hour long nebulizer treatment, which helped significantly. He recently lost his housing, and he is 02 dependent which requires electricity. He continues to audibly wheeze. The pt reports continued weight loss, even with fair appetite. The work of breathing continues expend energy. Pt also has atherosclerotic disease, bilat renal cysts. The patient is agreeable to DNR and being placed on hospice care at either a [facility] contracted assisted or at the [facility]. PPS score 35%
[2024-02-07] MEDS ORDERED: Acetaminophen 500 MG Tab PO PRN (16:15)
[2024-02-07] MEDS ORDERED: Polyethylene Glycol 3350 17 gm PO PRN (16:20)
[2024-02-07] MEDS ORDERED: Ipratropium/Albuterol SulF 2.5-0.5MG/3 ML Amp INH SCH (18:35)
[2024-02-07] MEDS ORDERED: Albuterol 2.5 MG/3 ML VIAL INH PRN (18:40)
[2024-02-07 19:51] VITALS: BP 115/67
[2024-02-07] MEDS ORDERED: Albuterol HFA200 ACT/6.7 GM INH INH PRN (20:10)
[2024-02-07] MEDS ORDERED: Celexa10 MG PO (20:22)
[2024-02-07] MEDS ORDERED: IPRAT-ALBUT 0.5-3 ML INH (20:23)
[2024-02-07] MEDS ORDERED: Docusate Sodium/Senna 1 Tab PO SCH (21:00)
[2024-02-08 03:48] VITALS: BP 137/78
--- NOTE | 2024-02-08 06:56 | NUR ---
END OF SHIFT SUMMARY PT A&OX4. INITIALLY ON 7L OF O2 UPON FIRST ASSESSMENT, O2 SAT 97. PT DENIED SOB, LUNG SOUNDS CLEAR. DECREASED O2 TO 6L PT BASELINE 5-6L AND O2 SAT MAINTAINED AT 97 WITH NO SOB. NO NEW EVENTS OVERNIGHT.
[2024-02-08 07:42] VITALS: BP 102/64
[2024-02-08] MEDS ORDERED: Rivaroxaban 10 MG Tab PO SCH (09:00)
[2024-02-08] MEDS ORDERED: PredniSONE 20 MG Tab PO SCH (09:00)
[2024-02-08 15:18] VITALS: BP 91/55
--- NOTE | 2024-02-08 17:28 | NUR ---
PT IS A/OX4, PLEASANT AND COOPERATIVE. THE PT IS MINIMAL ASSIST UP TO THE BSC. THE PT IS ON 5L/MIN O2 VIA NC WHICH PER THE PT IS HIS BASELINE. THE PT GETS VERY SOB WITH ACTIVITY. THE PT WAS MEDICATED FOR PAIN X1 THIS AM. CALL LIGHT IN REACH. BED IN THE LOW POSITION
[2024-02-08 20:31] VITALS: BP 115/70
[2024-02-09 03:18] VITALS: BP 117/70
--- NOTE | 2024-02-09 03:55 | NUR ---
SHIFT SUMMARY ALERYT AND ORIENTATED X4.SOCIAL WITH NURSE. 5L OXYGEN. CLEAR LUNG SOUNDS.REGULAR DIET. PRN TYLENOL 7 OF 10 PAIN. ABLE TO ABULATE TO BEDSIDE COMODE. APPEARED TO SLEEP THROUGH THE NIGHT WITH OUT ISSUE. BED AT LOW POSITION AND CALL LIGHT WITHIN REACH.
[2024-02-09 07:22] VITALS: BP 114/68
[2024-02-09 15:05] VITALS: BP 93/56
--- NOTE | 2024-02-09 18:47 | NUR ---
SUMMARY- PT A/O X4, USES CALL LIGHT. 1 SBA TO BATHROOM, OCC USES WHEELCHAIR. BECOMES VERY DYSPNIC WITH ACTIVITY. PRN ALBUTEROL INHALER. ROUTINE NEBS HELPFUL. PLAN FOR PT TO [facility]. TOLERATING FOOD AND FLUIDS. WILL REPORT TO RANDA BURROWS
[2024-02-09 20:04] VITALS: BP 137/94
[2024-02-10 04:04] VITALS: BP 115/90
--- NOTE | 2024-02-10 04:40 | NUR ---
POUNDMASTER SUMMARY VSS. LUNG SOUNDS DIMINISHED TO AUSCULTATION. HOB ELEVATED AND O2 PER NC FOR RESPIRATORY COMFORT. RT TREATMENTS ORDERED, TYLENOL FOR PAIN - SEE MAR FOR DETAILS. CHEERFUL AFFECT AND COOPERATIVE WITH TREATMENT. HAS BEEN RESTING QUIETLY WITH FEW INTERRUPTIONS. CALL LIGHT IN REACH, RAILS UP X 2 AND BED IN LOW POSITION FOR SAAFETY. ABLE TO REPOSITION SELF IN BED WITHOUT ASSIST FOR COMFORT AND SKIN MAINTENENCE. WILL CONTINUE TO MONITOR
[2024-02-10 07:26] VITALS: BP 118/73
[2024-02-10 17:12] VITALS: BP 141/83
--- NOTE | 2024-02-10 17:16 | NUR ---
SHIFT SUMMARY PATIENT A/OX4. COMPLAINING OF PAIN TO BILATERAL WRISTS AND LEFT SHOULDER, TYLENOL GIVEN PER SEP WAS EFEFCTIVE. TELEMETRY IN PLACE WITH NO EVENTS NOTED TODAY. PATIENT CONTINUES ON 6LPM OXYGEN VIA NASAL CANNULA, WHICH PATIENT STATES IS BASELINE. PLAN IS TO [facility]. NO OTHER CONCERNS AT THIS TIME.
[2024-02-10 20:02] VITALS: BP 110/85
[2024-02-11 03:14] VITALS: BP 142/83
--- NOTE | 2024-02-11 03:15 | NUR ---
GIS PHYSICAL SCIENTIST SUMMARY VSS. AWAKE MOST OF SHIFT WATCHING TV. BEDREST ENCOURAGED. O2 REMAINS AT 5L/MIN PER NC (BASELINE). DISCUSSED POSSIBLE DISCHARGE LATER TODAY, TO [facility], [facility]. HOB ELEVATED FOR COMFORT. VOICED "EXERCISING" LEGS AND BODY PARTS WHILE IN BED. AFFECT CHEERFUL AND ATTENTIVE BEHAVIOR. CALL LIGHT IN REACH, RAILS UP X 2 AND BED IN LOW POSITION FOR SAFETY. ABLE TO REPOSITION SELF IN BED WITHOUT ASSIST FOR COMFORT AND SKIN MAINTENANCE. USING URINAL - OUT PUT SUFFICIENT. WILL CONTINUE TO MONITOR
[2024-02-11 08:48] VITALS: BP 134/79
[2024-02-11 15:20] VITALS: BP 109/68
--- NOTE | 2024-02-11 18:05 | NUR ---
SHIFT SUMMARY PATIENT A/OX4. PATIENT COMPLAINING OF BILATERAL WRIST PAIN, TYLENOL GIVEN PER SEP. PATIENT WITH DYSPNEA WITH EXETRTION AND THIS AFTERNOON AFTER AMBULATING TO THE BATHROOM WAS VERY ANXIOUS AND SOB. RT WAS CALLED AND ASSESSED PATIENT, INHALER GIVEN. PATIENT CURRENTLY RESTING IN BED AT THIS TIME. NO OTHER CONCERNS NOTED.
[2024-02-11 19:40] VITALS: BP 122/80
--- NOTE | 2024-02-12 03:12 | NUR ---
ROLLER STAINER SUMMARY VSS. AWAKE AT INTERVALS. TALKATIVE. DENIES PAIN WHEN ASKED. INTERMITTENT DROPPING CALL LIGHT, ETC THROUGH NIGHT. RESPS EVEN BUT SOME EXP WHEEZE IN LOWER LUBES PER AUSCUTATION. O2 AT 5L/MIN PER NC (BASE). TOLERATING DIET WELL, ASKS FOR "CRACKERS" TO HELP WITH SOME GASTRIC ISSUES. CURRENTL RESTING QUIELTY. ABLE TO REPOSITION SELF IN BED WIHTOUT ASSIST. CALL LIGHT IN REACH, RAILS UP X 2 AND BED IN LOW POSITION FOR SAFETY. WILL CONTINUE TO MONITOR
[2024-02-12 04:27] VITALS: BP 138/85
[2024-02-12 07:36] VITALS: BP 148/101
[2024-02-12] MEDS ORDERED: SODIUM CHLORIDE OPTH BOTHEYES SCH (15:00)
[2024-02-12 15:51] VITALS: BP 127/82
--- NOTE | 2024-02-12 18:00 | NUR ---
SUMMARY- PT A/O X4, MOVES AROUND IN THE BED INDEPENDANTLY. OXYGEN AT 7L (BASELINE 6L) LUNGS DIM IN LOWER HALF. TOLERATING FOOD AND FLUIDS. [facility]WAITING [facility]PR[facility] TO [facility]. UNEVENTFUL DAY. WILL REPORT TO NOC
[2024-02-12 19:21] VITALS: BP 148/74
[2024-02-13 04:07] VITALS: BP 137/79
--- NOTE | 2024-02-13 04:50 | NUR ---
SHIFT SUMMARY BED ALARM SET PATIENT KEPT GETTING UP BY HIMSELF TO USE BATHROOM WOULD LIKE HIS INHALER TO BE BEDSIDE. ALERT AND ORIENTATED X4. HS MEDS GIVEN AND TOLERATED WELL. PATIENT ON 7L O2 BASELINE 6L. PATIENT HAD FREQUENT EPISODES OF TALKING AND ARGUING WITH SOMEONE IN HIS SLEEP. CHECKED IN WITH PATIENT Q2. PATIENT HAD CHEESE AMD CRACKERS FOR SNACK.
[2024-02-13 07:42] VITALS: BP 109/74
[2024-02-13 15:36] LABS: SARS-Cov-2 (COVID-19) PCR, MMC NEGATIVE (NEGATIVE)
[2024-02-13] MEDS ORDERED: SODCHL3.5O BOTHEYES (16:03)
--- NOTE | 2024-02-13 17:19 | NUR ---
Pt D/C at 1635, VSS, state SOB with ambulation, states 7 out of 10 pain that was well managed with prn tylenol, ambulates with 1x, on 8L NC. Report given to nurse at recieving facilty, safety ensured.
== END 2024-02-13 16:36 ==
LOC: ER 11:46 → MEDS 02-07 11:47
PROVIDERS: Family Medicine; ADMIT Internal Medicine
DX: J44.1 Chronic obstructive pulmonary disease with (acute) exacerbation (principal); J96.11 Chronic respiratory failure with hypoxia; F41.9 Anxiety disorder, unspecified; Z79.899 Other long term (current) drug therapy; S20.212A Contusion of left front wall of thorax, initial encounter; W01.198A Fall on same level from slipping, tripping and stumbling with subsequent striking against other object, initial encounter; Z87.891 Personal history of nicotine dependence
CPT/HCPCS: 71046; 71101; 80053; 85025; 93005; 93010; 94640; 94644; 94645; 94664; 94760; 96374; 96375; 99285-25; A9270; G0378; J1885; J2919; J7512; U0002

== ENCOUNTER 2024-10-20 09:27 | Day surgery (SDC) | payer MEDICARE, OTHER ==
[~2024-10-20] VITALS: Ht 170.2 cm; Wt 53.1 kg
[~2024-10-20 09:27] MED LIST changes: +Balanced Salt Epinephrine Irrigation Solution 500 mL IR SCH; +Celexa10 MG PO; +Lidocaine HCl/Pf 1% 5 ML VIAL XX SCH; +Moxifloxacin HCL 0.5 MG/0.1 ML 0.4MLSYR RIGHTEYE SCH; +NS 500 ML IV ONE; +PHENYLEPHRINE\\TROPICAMIDE\\TETRACAINE OPHTHALMIC DILATING SOLN RIGHTEYE PRN; +Povidone-Iodine 450 DROP/30 ML Solution ONE; +Povidone-Iodine 450 DROP/30 ML Solution RIGHTEYE SCH; +SODCHL3.5O BOTHEYES; +Tetracaine HCl/Pf 0.5% Opth Soln 4 ml ONE
[2024-10-20] MEDS ORDERED: PARO20 PO (10:22)
[2024-10-20] MEDS ORDERED: ACET500 PO (10:24)
[2024-10-20] MEDS ORDERED: BISA10S (10:24)
[2024-10-20] MEDS ORDERED: GUAI200 PO (10:25)
[2024-10-20] MEDS ORDERED: HYDR1TAB94 PO (10:25)
[2024-10-20] MEDS ORDERED: NS 500 ML IV ONE (10:25)
--- NOTE | 2024-10-20 10:33 | NUR ---
10/20/24 1033 Yovanny Montalvo TETRACAINE ADMINISTERED AT 1002, PLEADGET PLACED AT 1005.
[2024-10-20] MEDS ORDERED: Midazolam HCl 1MG / ML 2ML Vial ONE (10:34)
[2024-10-20] MEDS ORDERED: Flumazenil 0.1 MG / ML 5ML Vial ONE (10:39)
--- NOTE | 2024-10-20 10:57 | NUR ---
10/20/24 1051 Amanda Michelle PT MOVING HANDS, FEET, HEAD DURING SURGERY, DR. RODRÍGUEZ WELL DR. WINN ENCOURAGING PT TO HOLD STILL. PT ANSWERING QUESTIONS APROPRIATLY, ORIENTED TO SELF, LOCATION, SURGERY. MEDICATION PROVIDED BY DR. WINN. STORMY HEMPHILL IN ROOM TO HELP SECURE PTS JOSEPH JOSEPH ALSO HELPING. WILL CONTINUE TO MONITOR PT.
[2024-10-20 11:12] VITALS: BP 144/86
--- NOTE | 2024-10-20 11:55 | NUR ---
10/20/24 Erica5 Kris Spivey PT TOLERATING FOOD AND FLUIDS. PT IS POLITE AND COMMUNICATIVE. AWAITING CLEARANCE FOR DISCHARGE FROM ANESTHESIA.
== END 2024-10-20 12:23 | disposition home or self-care (01) ==
LOC: ORSCSDS 09:27
PROVIDERS: Student in an Organized Health Care Education/Training Program
PROC: 08RJ3JZ Replacement of Right Lens with Synthetic Substitute, Percutaneous Approach (ICD-10-PCS; principal; 2024-10-20 11:00)
DX: H25.813 Combined forms of age-related cataract, bilateral (principal); Z99.81 Dependence on supplemental oxygen; Z79.899 Other long term (current) drug therapy; J44.9 Chronic obstructive pulmonary disease, unspecified
CPT/HCPCS: J2250; J7040; V2632

== ENCOUNTER 2024-10-20 19:52 | Observation (INO) | payer OTHER, MEDICARE ==
[~2024-10-20] VITALS: Ht 170.2 cm; Wt 52.5 kg
[~2024-10-20 19:52] MED LIST changes: +ACET500 PO; +BISA10S; -Balanced Salt Epinephrine Irrigation Solution 500 mL IR SCH; +GUAI200 PO; +HYDR1TAB94 PO; -Lidocaine HCl/Pf 1% 5 ML VIAL XX SCH; -Moxifloxacin HCL 0.5 MG/0.1 ML 0.4MLSYR RIGHTEYE SCH; -NS 500 ML IV ONE; +PARO20 PO; -PHENYLEPHRINE\\TROPICAMIDE\\TETRACAINE OPHTHALMIC DILATING SOLN RIGHTEYE PRN; -Povidone-Iodine 450 DROP/30 ML Solution ONE; -Povidone-Iodine 450 DROP/30 ML Solution RIGHTEYE SCH; -Tetracaine HCl/Pf 0.5% Opth Soln 4 ml ONE
[2024-10-20 20:20] LABS: BASOPHILS ABSOLUTE AUTO 0.03 K/mm3 (0.00-0.23); BASOPHILS PERCENT AUTO 0 % (0-2); EOSINOPHILS ABSOLUTE AUTO 0.27 K/mm3 (0.00-0.68); EOSINOPHILS PERCENT AUTO 4 % (0-6); Hemoglobin 10.2 g/dL (13.5-17.5); IMMATURE GRAN ABSOLUTE AUTO 0.01 K/mm3 (0.00-0.10); IMMATURE GRAN PERCENT AUTO 0 % (0-1); LYMPHOCYTES ABSOLUTE AUTO 1.14 K/mm3 (0.84-5.20); LYMPHOCYTES PERCENT AUTO 15 % (21-46); MONOCYTES ABSOLUTE AUTO 0.67 K/mm3 (0.16-1.47); MONOCYTES PERCENT AUTO 9 % (4-13); Mean Corpuscular HGB 30.9 pg (26.0-34.0); Mean Corpuscular Volume 103 fL (80-100); Mean Platelet Volume 10.2 fL (9.1-12.4); NEUTROPHILS ABSOLUTE AUTO 5.63 K/mm3 (1.96-9.15); NEUTROPHILS PERCENT AUTO 73 % (41-73); Platelet Count 201 K/mm3 (150-400); RDW Coefficient Variation 11.8 % (11.7-14.2); RDW Standard Deviation 44.6 fL (35.1-46.3); White Blood Cell Count 7.75 K/mm3 (4.00-11.30)
[2024-10-20 20:40] LABS: Alanine Aminotransfer (ALT/SGP 21 U/L (12-78); Albumin, Blood 3.6 g/dL (3.4-5.0); Albumin/Globulin Ratio 1.2 (0.8-1.8); Alk Phos 65 U/L (50-136); Aspartate Aminotrans (AST/SGOT 18 U/L (12-37); Bilirubin, Total 0.4 mg/dL (0.1-1.0); Blood Urea Nitrogen 18 mg/dL (8-24); Bun/Creatinine Ratio 31.6 (12.0-20.0); Calcium, Blood 9.4 mg/dL (8.5-10.1); Chloride, Blood 93 mmol/L (98-108); Creatinine, Blood 0.57 mg/dL (0.60-1.20); Globulin, Blood 2.9 g/dL (2.2-4.0); Glomerular Filtration Rate 107 (60-); Glucose, Blood 124 mg/dL (70-99); Potassium, Blood 4.6 mmol/L (3.5-5.5); Sodium, Blood 139 mmol/L (136-145); Total Protein, Blood 6.5 g/dL (6.4-8.2)
[2024-10-20 20:41] LABS: Anion Gap Unable to Calculate mmol/L (3-11)
[2024-10-20 20:42] LABS: CO2, Blood >45 mmol/L (21-32)
[2024-10-20 21:20] LABS: Ethanol (Alcohol), Blood, Med <3 mg/dL; Salicylate <1.7 mg/dL (2.8-20.0); Thyroid Stimulating Hormone 0.678 uIU/mL (0.360-4.800)
[2024-10-20 21:23] LABS: Base Excess Venous 25.9 mmol/L; Bicarbonate Venous 46.8 mmol/L (24.0-30.0); PCO2 Venous 89.6 mmHg (38-42); pH Blood Venous 7.37 (7.34-7.37)
[2024-10-20 21:24] LABS: Acetaminophen, Random <2.0 ug/mL (10.0-30.0)
[2024-10-20 22:11] LABS: Source, Urine Clean Catch
[2024-10-20 22:20] LABS: Appearance, Urine Clear (Clear); Bilirubin, Urine Neg (Neg); Blood, Urine Neg (Neg); Color, Urine Yellow (P-Yellow); Glucose Qualitative, Urine Neg (Neg); Ketones, Urine Neg (Neg); Leukocyte Esterase, Urine Neg (Neg); Nitrite, Urine Neg (Neg); Protein, Urine Neg (Neg); Urobilinogen, Urine NORM (Normal)
[2024-10-20 22:31] LABS: U Amphetamine Screen DETECTED; U Barbituate Screen Not Detected; U Benzodiazapine Screen Not Detected; U Buprenorphine Screen Not Detected; U Cannabinoids Screen Not Detected; U Cocaine Screen Not Detected; U Methadone Screen Not Detected; U Methamphetamine Screen DETECTED; U Opiates Screen Not Detected; U Oxycodone Screen Not Detected; U Phencyclidine Screen Not Detected
[2024-10-21] MEDS ORDERED: LORazepam 2 MG/ML 1ML Injection IV PRN (01:35)
--- NOTE | 2024-10-21 03:01 | NUR ---
ADMIT NOTE 69 BYR OLD MALE ADMITTED TO FLOOR FROM THE ED WITH DX OF AMS. ED RN REPORTED PT POSITIVE FOR METH. REPORTED AMS POST CATARACT SURGERY. ON O2 PER NC 4-7L/MIN. INTERMITTENT AGITATION IN THE ED. ORIENTED TO USE OF CALL LIGHT. INSTRUCTED TO USE CALL LIGHT IF NEEDS ARISE, NOT TO GET OOB WITHOUT ASSIST DUE TO FALL RISK. BED ALARM ON. RAILS UP X 2 AND BED IN LOW POSITION FOR SAFETY.
--- NOTE | 2024-10-21 03:48 | NUR ---
STRIPE MARKER SUMMARY BP ELEVATED, OTHERWISE VSS. HAS BEEN RESTING QUIETLY AT INTERVALS WITH HOB ELEVATED AND O2 AT 5L/MIN PER NC. ALERT TO MOST QUESTIONS ASKED, BUT EASILY AGITATED. HAS BEEN RESTING QUIETLY WITH SOME PHYSICAL RESTLESSNESS. CALL LIGHT IN REACH, RAILS UP X 2, BED ALARM ON AND BED IN LOW POSITION FOR SAFETY. WILL CONT TO JOHN.
[2024-10-21 05:02] VITALS: BP 152/94
[2024-10-21 05:49] LABS: Base Excess Venous 26.3 mmol/L; Bicarbonate Venous 47.7 mmol/L (24.0-30.0); PCO2 Venous 71.2 mmHg (38-42); pH Blood Venous 7.46 (7.34-7.37)
[2024-10-21] MEDS ORDERED: NS 1,000 ML IV SCH (06:40)
[2024-10-21 07:47] VITALS: BP 141/75
[2024-10-21] MEDS ORDERED: Enoxaparin 40 MG/0.4 ML SYR SC SCH (09:00)
[2024-10-21 09:17] LABS: Blood Urea Nitrogen 16 mg/dL (8-24); Bun/Creatinine Ratio 30.7 (12.0-20.0); Calcium, Blood 9.2 mg/dL (8.5-10.1); Chloride, Blood 94 mmol/L (98-108); Creatinine, Blood 0.52 mg/dL (0.60-1.20); Glomerular Filtration Rate 110 (60-); Glucose, Blood 99 mg/dL (70-99); Potassium, Blood 4.6 mmol/L (3.5-5.5); Sodium, Blood 138 mmol/L (136-145)
[2024-10-21 09:18] LABS: Anion Gap Unable to Calculate mmol/L (3-11)
[2024-10-21 09:21] LABS: Hematocrit 37.1 % (37.0-53.0); Mean Corpuscular HGB 30.5 pg (26.0-34.0); Mean Corpuscular HGB Conc 29.6 g/dL (31.5-36.5); Mean Corpuscular Volume 103 fL (80-100); Mean Platelet Volume 10.2 fL (9.1-12.4); Platelet Count 210 K/mm3 (150-400); RDW Coefficient Variation 11.7 % (11.7-14.2); RDW Standard Deviation 43.9 fL (35.1-46.3); Red Blood Cell Count 3.61 M/mm3 (4.30-5.90); White Blood Cell Count 8.89 K/mm3 (4.00-11.30)
[2024-10-21 09:22] LABS: CO2, Blood >45 mmol/L (21-32)
[2024-10-21 11:34] VITALS: BP 148/86
[2024-10-21 16:00] VITALS: BP 153/92
--- NOTE | 2024-10-21 16:34 | NUR ---
SHIFT SUMMARY AND DISCHARGE BACK TO ALF AND REHAB PATIENT RESTING. EASILY AROUSES. ALERT AND INTERACTIVE WHEN AWAKE. PATIENT SOB AT TIMES BUT BIOX 93-99%. PATIENT ABLE TO GET UP OOB WITH MINIMAL ASSISTANCE. PATIENT STATES THAT HE WILL NOT WEAR THE BIPAP MAX AT ALL. PATIENT REFUSES EVEN AFTER EDUCATION RELATED TO CO2 LEVELS. FAN PROVIDED TO PATIENT FOR COMFORT WITH SOB. REPORT ATTEMPTED TO BE CALLED TO [facility] WITH NO ANSWER. MESSAGE LEFT. DR. RODRÍGUEZ'S OFFICE CALLED RELATED TO FOLLOW UP AFTER EYE SURGERY. PATIENT IS TO BE WEARING EYE PATCH AND FREQUENT EYE DROPS. OFFICE INFORMED THAT PATIENT DISCHARGING BACK TO [facility] AND WILL NEED NEW ORDERS RELATED TO EYE DROPS. EYE DROPS WERE NOT ORDERED ON ADMISSION.
--- NOTE | 2024-10-21 16:41 | NUR ---
PATIENT TRANSPORTED OUT VIA WHEELCHAIR WITH O2 BY AMBULANCE COMPANY. IV OUT AND BELONGINGS RETURNED TO PATIENT
--- NOTE | 2024-10-21 17:30 | NUR ---
SHIFT SUMMARY PATIENT ALERT AND INTERACTIVE. HAND WOUND UNDRESSED BY DR KAM AND DRAIN REMOVED. PATIENT OOZING PUSS FROM WOUND. PATIENT TAKEN TO OR FOR WASH OUT. PATIENT RETURNED TO ROOM AFTER SURGERY. PATIENT ALERT AND INTERACTIVE. VSS. HAND WRAPPED WITH DRESSING AND CARINA WRAP. PATIENT RE EDUCATED ON THE IMPORTANCE OF KEEPING HAND ELEVATED. PATIENT AWAKE AND ALERT AFTER SURGERY. PATIENT ABLE TO TRANSFER FROM [facility] TO BED INDEPENDENTLY.
== END 2024-10-21 17:26 ==
LOC: ER 19:52 → MEDS 19:53
PROVIDERS: Internal Medicine; Student in an Organized Health Care Education/Training Program; ADMIT Internal Medicine
DX: G92.8 Other toxic encephalopathy (principal); H25.813 Combined forms of age-related cataract, bilateral; J44.89 Other specified chronic obstructive pulmonary disease; J96.11 Chronic respiratory failure with hypoxia; F32.9 Major depressive disorder, single episode, unspecified; E44.0 Moderate protein-calorie malnutrition; Z68.1 Body mass index [BMI] 19.9 or less, adult; Z87.891 Personal history of nicotine dependence; Z79.899 Other long term (current) drug therapy; Z99.81 Dependence on supplemental oxygen
CPT/HCPCS: 36415; 51701; 80048; 80053; 80320; 81003; 82803; 83880; 84443; 85025; 85027; 93005; 93010; 94660; 94762; 96372; 99285-25; A6590; G0378; G0480; J1650; J2250; J7040; V2632

== ENCOUNTER 2024-11-17 11:47 | Day surgery (SDC) | payer MEDICARE, OTHER ==
[~2024-11-17] VITALS: Ht 175.3 cm; Wt 53.5 kg
[~2024-11-17 11:47] MED LIST changes: +Balanced Salt Epinephrine Irrigation Solution 500 mL IR SCH; +Lidocaine HCl/Pf 1% 5 ML VIAL XX SCH; +Moxifloxacin HCL 0.5 MG/0.1 ML 0.4MLSYR LEFTEYE SCH; +NS 500 ML IV ONE; +PHENYLEPHRINE\\TROPICAMIDE\\TETRACAINE OPHTHALMIC DILATING SOLN LEFTEYE PRN; +Povidone-Iodine 450 DROP/30 ML Solution LEFTEYE SCH; +Povidone-Iodine 450 DROP/30 ML Solution ONE; +Tetracaine HCl/Pf 0.5% Opth Soln 4 ml ONE
[2024-11-17] MEDS ORDERED: ERGO400 PO (12:37)
[2024-11-17] MEDS ORDERED: FentaNYL Citrate 50 MCG/ML 2 ML Injection ONE (12:39)
[2024-11-17] MEDS ORDERED: propofoL 20 ML IV ONE (12:39)
[2024-11-17] MEDS ORDERED: NS 500 ML IV ONE (12:49)
[2024-11-17] MEDS ORDERED: Tetracaine HCl 0.5% Opth Soln 15 ml LEFTEYE ONE (13:08)
[2024-11-17 13:32] VITALS: BP 124/88
--- NOTE | 2024-11-17 13:59 | NUR ---
11/17/24 1359 Tennille Ospina DISCHARGED VIA OWN ELECTRIC WHEELCHAIR TO AMBULANCE.
== END 2024-11-17 13:58 | disposition home or self-care (01) ==
LOC: ORSCSDS 11:47
PROVIDERS: Student in an Organized Health Care Education/Training Program
PROC: 08RK3JZ Replacement of Left Lens with Synthetic Substitute, Percutaneous Approach (ICD-10-PCS; principal; 2024-11-17 13:30)
DX: H25.812 Combined forms of age-related cataract, left eye (principal); Z96.1 Presence of intraocular lens; J44.9 Chronic obstructive pulmonary disease, unspecified; Z99.81 Dependence on supplemental oxygen; Z87.891 Personal history of nicotine dependence; Z79.899 Other long term (current) drug therapy
CPT/HCPCS: J2704; J3010; J7040; V2632

== ENCOUNTER 2024-12-05 08:22 | Inpatient (IN) | payer OTHER, MEDICARE ==
[~2024-12-05] VITALS: Ht 180.3 cm; Wt 57.8 kg
[~2024-12-05 08:22] MED LIST changes: -Balanced Salt Epinephrine Irrigation Solution 500 mL IR SCH; -Lidocaine HCl/Pf 1% 5 ML VIAL XX SCH; -Moxifloxacin HCL 0.5 MG/0.1 ML 0.4MLSYR LEFTEYE SCH; -NS 500 ML IV ONE; -PHENYLEPHRINE\\TROPICAMIDE\\TETRACAINE OPHTHALMIC DILATING SOLN LEFTEYE PRN; -Povidone-Iodine 450 DROP/30 ML Solution LEFTEYE SCH; -Povidone-Iodine 450 DROP/30 ML Solution ONE; -Tetracaine HCl/Pf 0.5% Opth Soln 4 ml ONE; +Vitamin D1000 UNI1 PO
[2024-12-05] MEDS ORDERED: Magnesium Sulf 2 GM/Water 50ML 50 ML IV ONE (08:30)
[2024-12-05] MEDS ORDERED: Albuterol 2.5 MG/3 ML VIAL INH SCH (08:30)
[2024-12-05] MEDS ORDERED: Ipratropium Bromide INH 0.02% 0.5 mg/2.5ML Vial INH SCH (08:30)
[2024-12-05 08:44] LABS: Hematocrit 33.7 % (37.0-53.0); Hemoglobin 9.4 g/dL (13.5-17.5); Mean Corpuscular HGB 29.7 pg (26.0-34.0); Mean Corpuscular HGB Conc 27.9 g/dL (31.5-36.5); Mean Corpuscular Volume 106 fL (80-100); Mean Platelet Volume 9.4 fL (9.1-12.4); Platelet Count 577 K/mm3 (150-400); RDW Coefficient Variation 12.6 % (11.7-14.2); RDW Standard Deviation 49.4 fL (35.1-46.3); Red Blood Cell Count 3.17 M/mm3 (4.30-5.90); White Blood Cell Count 32.74 K/mm3 (4.00-11.30)
[2024-12-05 08:55] LABS: PCO2 Venous 101 mmHg (38-42); pH Blood Venous 7.24 (7.34-7.37)
[2024-12-05] MEDS ORDERED: Piperacillin/Tazobactam Sod 3.375 GM in NS 100 ML IV ONE (08:55)
[2024-12-05 09:03] LABS: BASOPHILS PERCENT MAN 0 % (0-2); EOSINOPHILS ABSOLUTE MAN 0.65 K/mm3 (0.00-0.68); EOSINOPHILS PERCENT MAN 2 % (0-6); LYMPHOCYTES ABSOLUTE MAN 4.58 K/mm3 (0.84-5.20); LYMPHOCYTES PERCENT MAN 14 % (21-46); METAMYELOCYTE ABSOLUTE MAN 0.98 K/mm3 (0.00-0.00); METAMYELOCYTE PERCENT MAN 3 % (0-0); MONOCYTES ABSOLUTE MAN 2.61 K/mm3 (0.16-1.47); MONOCYTES PERCENT MAN 8 % (4-13); SEG NEUTROPHILS PERCENT MAN 73 % (41-73); TOTAL CELLS COUNTED 100
[2024-12-05 09:05] LABS: Albumin, Blood 2.4 g/dL (3.4-5.0); Albumin/Globulin Ratio 0.5 (0.8-1.8); Bilirubin, Total 0.1 mg/dL (0.1-1.0); Calcium, Blood 9.1 mg/dL (8.5-10.1); Creatinine, Blood 0.57 mg/dL (0.60-1.20); Total Protein, Blood 7.4 g/dL (6.4-8.2)
[2024-12-05] MEDS ORDERED: Lactated Ringer's 1,000 ML IV SCH (09:10)
[2024-12-05 10:28] LABS: Base Excess Venous 18.6 mmol/L; Bicarbonate Venous 39.3 mmol/L (24.0-30.0); PCO2 Venous 96.6 mmHg (38-42)
[2024-12-05 10:29] LABS: pH Blood Venous 7.28 (7.34-7.37)
[2024-12-05] MEDS ORDERED: Furosemide 10 MG / ML 2ML Vial IV ONE (10:45)
[2024-12-05] MEDS ORDERED: Albuterol 2.5 MG/3 ML VIAL INH PRN (10:55)
[2024-12-05] MEDS ORDERED: Ipratropium/Albuterol SulF 2.5-0.5MG/3 ML Amp INH SCH (10:55)
[2024-12-05] MEDS ORDERED: HydrALAZINE HCl 20 MG / ML 1ML Vial IV PRN (10:55)
[2024-12-05] MEDS ORDERED: Ondansetron HCl 2 MG / ML 2ML Vial IV PRN (10:55)
[2024-12-05] MEDS ORDERED: TraZODone HCl 50 MG Tab PO PRN (10:55)
[2024-12-05] MEDS ORDERED: Naloxone HCl 0.4MG / ML 1ML Vial IV PRN (11:00)
[2024-12-05] MEDS ORDERED: HYDROcodone 5-APAP 325 TAB PO PRN (11:00)
[2024-12-05] MEDS ORDERED: HYDROmorphone HCl/Pf 1MG SYR IV PRN (11:00)
[2024-12-05] MEDS ORDERED: Mometasone/Formoterol MDI 200/5 mcg 13 GM INH SCH (11:05)
[2024-12-05 12:38] VITALS: BP 110/43
[2024-12-05] MEDS ORDERED: BISA10S PR (13:26)
[2024-12-05] MEDS ORDERED: MIRALAX17 GM PO (13:27)
[2024-12-05] MEDS ORDERED: Acetaminophen 325 MG TABLET PO PRN (13:35)
--- NOTE | 2024-12-05 13:40 | NUR ---
Pt arrived to PCU 16, on BIPAP. Conversant, no acute distress noted. He is very talkative and cheerful, readily answering questions and making conversation. No pain/discomfort at this time. Skin intact. Lung sounds very diminished posterior. Pt is NPO at this time until his respiratory status is improved. Oral care done with bipap accomodations. He has many missing teeth, states no dentures. Sinus tachycardia, 103 bpm. Voiding using the urinal at bedside, total 900cc urine since given lasix in the ED. SCDs are on. Call light in reach, pt using it appropriately.
[2024-12-05] MEDS ORDERED: CefTRIAXone Sodium 1,000 MG in NS 100 ML IV SCH (15:00)
[2024-12-05 15:25] VITALS: BP 93/72
[2024-12-05] MEDS ORDERED: MethylPREDNISolone Sod Succ 125 MG Vial IV SCH (16:00)
[2024-12-05] MEDS ORDERED: Doxycycline Hyclate 100 MG in Dextrose 5% 250 ML IV SCH (16:00)
[2024-12-05 16:21] VITALS: BP 103/73
--- NOTE | 2024-12-05 17:22 | NUR ---
Pt wearing bipap, appears to be sleeping comfortably.
--- NOTE | 2024-12-05 19:37 | NUR ---
ASSUMPTION OF CARE ASSUMED PT'S CARE AT 1900,BEDSIDE REPORT6 COMPLETED WITH DAYSSDFT NURSE.PT ON BIPAP,OPENS EYES TO VERBAL COMMAND.PLAN OF CARE REVIEWED,PT DENIES,DENIES SOB,DENIES NEEDS AT THIS TIME.CALL LIGHT AND PT'S ITEMS WITHIN REACH.ONGOING MONITORING ACCORDING TO PLAN OF CARE.
[2024-12-05 20:36] VITALS: BP 109/74
[2024-12-05] MEDS ORDERED: Montelukast Sodium 10 MG Tab PO SCH (21:00)
--- NOTE | 2024-12-05 21:48 | NUR ---
REQUESTED [facility]ORRE[facility] TO FAX OVER MED LIST
[2024-12-05 23:35] VITALS: BP 112/74
[2024-12-06] VITALS (45 sets, daily range): BP systolic 70–130; BP diastolic 51–98
[2024-12-06 04:32] LABS: Hematocrit 29.9 % (37.0-53.0); Hemoglobin 8.9 g/dL (13.5-17.5)
[2024-12-06 04:33] LABS: Base Excess Venous 18.6 mmol/L; Bicarbonate Venous 40.1 mmol/L (24.0-30.0); PCO2 Venous 69.7 mmHg (38-42)
[2024-12-06 05:03] LABS: Albumin, Blood 2.4 g/dL (3.4-5.0); Albumin/Globulin Ratio 0.5 (0.8-1.8); Bilirubin, Total 0.2 mg/dL (0.1-1.0); Bun/Creatinine Ratio 42.3 (12.0-20.0); Calcium, Blood 9.8 mg/dL (8.5-10.1); Creatinine, Blood 0.64 mg/dL (0.60-1.20); Globulin, Blood 5.1 g/dL (2.2-4.0); Potassium, Blood 4.5 mmol/L (3.5-5.5); Total Protein, Blood 7.5 g/dL (6.4-8.2)
--- NOTE | 2024-12-06 07:10 | NUR ---
PT SLEPT ON/OFF THROUGHOUT THE NIGHT.OCCASIONALLY PT WOULD WAKE UP ANGRY AND TALKING TO HIMSELF.PT SAID THAT HE WAS HAVING BAD DREAMS.TOLERATED THE BIPAP WELL.REPORTS FEELING BETTER THIS MORNING.PT STATES THAT HE IS HUNGRY AND WANTS SOMETHING TO EAT.PT INFORMED THAT HE IS NPO FOR RISK OF ASPIRATION.PT VERBALIZES UNDERSTANDING.PT DENIES PAIN,DENIES NEEDS THIS MORNING.AWAKE WATCHING TV.CALL LIGHT AND PT'S ITEMS WITHIN REACH.
[2024-12-06] MEDS ORDERED: Loratadine 10 MG Tab PO SCH (09:00)
[2024-12-06] MEDS ORDERED: PARoxetine HCl 20 MG Tab PO SCH (09:00)
[2024-12-06] MEDS ORDERED: Enoxaparin 40 MG/0.4 ML SYR SC SCH (09:00)
[2024-12-06] MEDS ORDERED: LORazepam 2 MG/ML 1ML Injection IV ONE (09:15)
[2024-12-06] MEDS ORDERED: Morphine Sulfate 4 MG/1 ML Injection ONE (09:25)
[2024-12-06] MEDS ORDERED: Morphine Sulfate 4 MG/1 ML Injection IV ONE (09:30)
--- NOTE | 2024-12-06 09:59 | NUR ---
PATIENT ALERT AND ORIENTED THIS AM WEARING BIPAP AND TALKING TO STAFF. LUNG SOUNDS DIMINISHED WITH MINIMAL AIR MOVEMENT ON 10/03 AT 30% FIO2 ON BIPAP SATING 92-93%. TELE SHOWING SR/ST WITH HR 90-100'S. USING URINAL IND. RESPIRATORY IN TO SEE PATIENT AND PATIENT PLACED ON HIGH FLOW AT 6L. PATIENT WEARS 6-7L HIGH FLOW AT BASELINE. PATIENT SATING 91% ON 7L HIGH FLOW. PATIENT YELLS "I GOT TO GO". JUMPS OUT OF BED DISLODGING TELE CORDS AND WALKS TO BATHROOM QUICKLY. PATIENT HR UP TO 140-150'S AND WORK OF BREATHING INCREASED. THIS RN ASSISTED PATIENT BACK TO BED AND PLACED BIPAP BACK INTO PLACE. UPON REPLACING BIPAP DR. FISH TO BEDSIDE AND ORDERS FOR 0.5 MG IV ATIVAN NOW. ATIVAN ADMINISTERED WITH LITTLE AFFECT. THIS RN PLACED CALL TO MANAGER OFFICE. MANAGER OFFICE AT BEDSIDE. DR. IVY TO BEDSIDE AND 4MG IV MORPHINE ADMINISTERED. THIS RN PLACED CALL TO DR. FISH. DR. FISH TO BEDSIDE. PATIENT INTUBATED AND MOVED TO ICU 04. REPORTED OFF TO [employer].
[2024-12-06] MEDS ORDERED: propofoL 100 ML IV SCH (10:05)
[2024-12-06] MEDS ORDERED: FentaNYL Citrate 50 MCG/ML 2 ML Injection IV PRN (10:05)
[2024-12-06] MEDS ORDERED: propofoL 100 ML IV ONE (10:10)
[2024-12-06 10:29] LABS: Base Excess Venous 19.6 mmol/L; Bicarbonate Venous 40.4 mmol/L (24.0-30.0); PCO2 Venous 71.9 mmHg (38-42)
[2024-12-06] MEDS ORDERED: Lactated Ringer's 500 ML IV SCH (11:40)
[2024-12-06] MEDS ORDERED: Lactated Ringer's 1,000 ML IV ONE ×2 (11:41→14:24)
[2024-12-06 13:55] LABS: Acinetobacter baumannii DNA Not Detected copy/mL (NOT DETECT); Adenovirus DNA Not Detected (NOT DETECT); Chlamydia pneumonia Not Detected (NOT DETECT); Enterobacter cloacae DNA Not Detected copy/mL (NOT DETECT); Escherichia coli DNA Not Detected copy/mL (NOT DETECT); Haemophilus influenzae DNA Not Detected copy/mL (NOT DETECT); Human Coronavirus RNA Not Detected (NOT DETECT); Human Metapneumovirus RNA Not Detected (NOT DETECT); Influenza virus A RNA Not Detected (NOT DETECT); Influenza virus B RNA Not Detected (NOT DETECT); Klebsiella aerogenes DNA Not Detected copy/mL (NOT DETECT); Klebsiella oxytoca DNA Not Detected copy/mL (NOT DETECT); Klebsiella pneumoniae DNA Not Detected copy/mL (NOT DETECT); Legionella pneumophila Not Detected (NOT DETECT); Moraxella catarrhalis DNA Not Detected copy/mL (NOT DETECT); Mycoplasma pneumoniae Not Detected (NOT DETECT); Parainfluenza virus RNA Not Detected (NOT DETECT); Proteus sp DNA Not Detected copy/mL (NOT DETECT); Pseudomonas aeruginosa DNA Not Detected copy/mL (NOT DETECT); Respiratory syncytial Vir RNA Not Detected (NOT DETECT); Rhinovirus+Enterovirus RNA Not Detected (NOT DETECT); Serratia marcescens DNA Not Detected copy/mL (NOT DETECT); Staphylococcus aureus DNA Not Detected copy/mL (NOT DETECT); Streptococcus agalactiae DNA Not Detected copy/mL (NOT DETECT); Streptococcus pneumoniae DNA Not Detected copy/mL (NOT DETECT); Streptococcus pyogenes DNA Not Detected copy/mL (NOT DETECT)
--- NOTE | 2024-12-06 14:14 | NUR ---
CENTRAL LINE PLACEMENT 50MCG OF FENTANYL GIVEN PRIOR TO PROCEDURE AT 1414. TIMEOUT COMPLETED AT 1417 FOR CENTRAL LINE. 500ML LR BOLUS D/T HYPOTENSION 84/60 (68). 50mcg OF FENTANYL GIVEN AT 1431. CENTRAL LINE IS PLACED CXR WILL MD ORDERED BY . PT VS HR 78 BP 96/67 (76) AND O2 AT 97% WITH RR 16.
[2024-12-06] MEDS ORDERED: Lactated Ringer's 500 ML IV ONE (14:30)
[2024-12-06] MEDS ORDERED: Midazolam HCl 1MG / ML 2ML Vial IV ONE (14:35)
[2024-12-06] MEDS ORDERED: Etomidate 2MG / ML 10ML Vial IV ONE (14:35)
[2024-12-06] MEDS ORDERED: Rocuronium Bromide 10 MG/ML 5ML Injection IV ONE (14:35)
[2024-12-06] MEDS ORDERED: Phenylephrine HCl 100 MCG/ML-NS 10MLSYR (1MG/10ML) IV ONE (14:35)
[2024-12-06] MEDS ORDERED: FentaNYL Citrate 50 MCG/ML 2 ML Injection IV ONE (14:45)
[2024-12-06 19:28] LABS: Base Excess Venous 20.6 mmol/L; Bicarbonate Venous 42.3 mmol/L (24.0-30.0); PCO2 Venous 58.3 mmHg (38-42); pH Blood Venous 7.49 (7.34-7.37)
--- NOTE | 2024-12-06 20:00 | NUR ---
ASSUMPTION OF CARE CARE OF PT ASSUMED FOLLOWING REPORT FROM DAY RN. PT INTUBATED AND SEDATED. AWAKE AND ORIENTED TO SELF. PT SHAKES/NODS HEAD TO QUESTIONS AND FOLLOWS COMMANDS EXCEPT FOR OPENING EYES. MAEW. CN'S GROSSLY INTACT. PROPOFOL INFUSING AT 50. PT STIRS WITH MINIMAL CARE. SINUS RHYTHM IN THE 70'S. BP STABLE ON LEVOPHED 1- WILL TITRATE OFF ABLE. VENT SETTINGS 16/375/30%/8.0 WITH SATURATION IN THE 90'S. ETT TUBE 8.0 AND 25.0 AT TEETH. MOST RECENT VBG SHOWS SLIGHT BASIC (7.49), HIGH CO2 (58.3) AND HIGH HCO3 (42.3) OG TUBE CLAMPED FOR MEDS AT 65CM. TEMP ARAUJO DRAINING PALE YELLOW URINE. WILL REVIEW AND FOLLOW PLAN OF CARE.
[2024-12-07] VITALS (82 sets, daily range): BP systolic 77–127; BP diastolic 52–85
[2024-12-07 03:47] LABS: Hematocrit 23.9 % (37.0-53.0); Hemoglobin 7.5 g/dL (13.5-17.5); Mean Corpuscular HGB 30.1 pg (26.0-34.0); Mean Corpuscular HGB Conc 31.4 g/dL (31.5-36.5); Mean Platelet Volume 9.8 fL (9.1-12.4); Platelet Count 483 K/mm3 (150-400); RDW Standard Deviation 45.7 fL (35.1-46.3); Red Blood Cell Count 2.49 M/mm3 (4.30-5.90); White Blood Cell Count 10.96 K/mm3 (4.00-11.30)
[2024-12-07 04:02] LABS: Mean Corpuscular Volume 96 fL (80-100)
[2024-12-07 04:07] LABS: Albumin, Blood 2.1 g/dL (3.4-5.0); Albumin/Globulin Ratio 0.5 (0.8-1.8); Bilirubin, Total 0.2 mg/dL (0.1-1.0); Bun/Creatinine Ratio 47.1 (12.0-20.0); Creatinine, Blood 0.55 mg/dL (0.60-1.20); Magnesium, Blood 2.1 mg/dL (1.6-2.4); Total Protein, Blood 6.1 g/dL (6.4-8.2)
--- NOTE | 2024-12-07 06:26 | NUR ---
SHIFT SUMMARY PT INTUBATED AND SEDATED. WHEN AWAKE AND ORIENTED TO SELF. PT SHAKES/NODS HEAD TO QUESTIONS AND FOLLOWS COMMANDS EXCEPT FOR OPENING EYES. MAEW. CN'S GROSSLY INTACT. PROPOFOL INFUSING AT 56. PT STIRS WITH MINIMAL CARE. SINUS RHYTHM IN THE 70'S. LEVO OFF EARLY IN SHIFT, BP AVERAGE 75 MAP, WITH A COUPLE OF <65 MEASUREMENTS. VENT SETTINGS 16/375/30%/8.0 WITH SATURATION IN THE 90'S. ETT TUBE 8.0 AND 23.0 AT TEETH. MOST RECENT VBG (LAST NIGHT) SHOWS SLIGHT BASIC (7.49), HIGH CO2 (58.3) AND HIGH HCO3 (42.3) OG TUBE CLAMPED FOR MEDS AT 65CM. TEMP ARAUJO DRAINED 750ML PALE YELLOW URINE. PT NEEDS FREQUENT EYE CARE. BEDSIDE REPORT GIVEN TO ONCOMING RN.
[2024-12-07] MEDS ORDERED: Furosemide 10 MG / ML 2ML Vial IV ONE (07:25)
[2024-12-07] MEDS ORDERED: Vancomycin HCL 1,500 MG in NS 250 ML IV ONE (07:55)
[2024-12-07] MEDS ORDERED: Meropenem 1,000 MG in NS 100 ML IV SCH (08:00)
[2024-12-07] MEDS ORDERED: FentaNYL Citrate 50 MCG/ML 2 ML Injection IV PRN (08:40)
[2024-12-07] MEDS ORDERED: SODIUM CHLORIDE OPTH BOTHEYES SCH (09:00)
[2024-12-07] MEDS ORDERED: Pantoprazole Sodium 40 MG Injection IV SCH (10:25)
[2024-12-07] MEDS ORDERED: Midazolam HCl 1MG / ML 2ML Vial IV PRN (10:30)
[2024-12-07] MEDS ORDERED: Magnesium Hydroxide Conc 10 ML UDC PT PRN (11:05)
[2024-12-07] MEDS ORDERED: Bisacodyl 10 MG Supp PR PRN (11:05)
[2024-12-07] MEDS ORDERED: Docusate Sodium Liquid 100 MG UDC PT PRN (11:05)
[2024-12-07 11:56] LABS: Hematocrit 25.8 % (37.0-53.0); Hemoglobin 8.2 g/dL (13.5-17.5)
[2024-12-07] MEDS ORDERED: Hydrogen Peroxide 1.5 % Solution MT SCH (16:00)
[2024-12-07 19:12] LABS: U Opiates Screen DETECTED
[2024-12-07 19:13] LABS: U Amphetamine Screen Not Detected; U Barbituate Screen Not Detected; U Benzodiazapine Screen DETECTED; U Buprenorphine Screen Not Detected; U Cannabinoids Screen Not Detected; U Cocaine Screen Not Detected; U Methadone Screen Not Detected; U Methamphetamine Screen Not Detected; U Oxycodone Screen Not Detected; U Phencyclidine Screen Not Detected
--- NOTE | 2024-12-07 19:27 | NUR ---
SHIFT SUMMARY: NEURO: PATIENT EASILY AWOKEN WITH VERBAL STIMULI. PATIENT FOLLOWING DIRECTIONS, NODDING YES/NO TO QUESTIONS, AND ABLE TO WRITE SOMEWHAT. MEDICATED FOR PAIN TWICE. MEDICATED ONCE FOR AGITATION AND ANXIETY. PATIENT ENDED THE SHIFT WITH PROPOFOL AT 50 MCG/KG/MIN. RASS OF -1 - 0. MOBILITY PRESENT IN ALL FOUR EXTREMTIES. RESPIRATORY: VENT SETTINGS SET TO AC/VC 14/375/8/35%. SPO2 >90%. MINIMAL THICK WHITE SPUTUM WITH SUCTION. CARDIAC: TO MAINTAIN MAPS >65 AND SBP >80, PATIENT RESTARTED ON LEVOPHED THIS AM. FOR THE REST OF THE SHIFT, LEVO REMAINED AT 1 MCG/MIN. HR IN THE 80S. GI/: PATIENT STARTED ON VITAL HP AT 20 ML/HR THIS AFTERNOON. PATIENT TOLERATED IT WELL THIS AFTERNOON. DENIED NAUSEA OR ABDOMINAL DISCOMFORT. ARAUJO IN PLACE AND DRAINING FREELY. URINE IS YELLOW IN COLOR. PSYCHSOCIAL: PATIENT FOR THE MOST PART CALM AND COOPERATIVE. PATIENT'S SO CRYSTAL CALLED AND DAUGHTER VISITED. PATIENT GAVE PERMISSION TO THIS RN TO SPEAK WITH BOTH. BOTH ARE CONCERNED THAT AT [facility], THE STAFF IS INCREASING THE PATIENT'S O2 TO 7-8 L/MIN. THEY ARE REQUESTING A HOME O2 EVALUATION SO THAT THE PATIENT CAN RETURN TO THE FACILITY WITH AN ORDER TO BE FOLLOWED.
[2024-12-07] MEDS ORDERED: Cetylpyridinium Chloride 1 EA MISC MT SCH (20:00)
[2024-12-07] MEDS ORDERED: Vancomycin HCL 1,250 MG in NS 250 ML IV SCH (21:00)
[2024-12-08] VITALS (43 sets, daily range): BP systolic 93–161; BP diastolic 61–96
[2024-12-08 04:36] LABS: BASOPHILS PERCENT AUTO 0 % (0-2); EOSINOPHILS ABSOLUTE AUTO 0.01 K/mm3 (0.00-0.68); EOSINOPHILS PERCENT AUTO 0 % (0-6); Hematocrit 25.3 % (37.0-53.0); Hemoglobin 8.2 g/dL (13.5-17.5); IMMATURE GRAN ABSOLUTE AUTO 0.05 K/mm3 (0.00-0.10); IMMATURE GRAN PERCENT AUTO 1 % (0-1); LYMPHOCYTES PERCENT AUTO 4 % (21-46); MONOCYTES ABSOLUTE AUTO 0.45 K/mm3 (0.16-1.47); MONOCYTES PERCENT AUTO 5 % (4-13); Mean Corpuscular HGB Conc 32.4 g/dL (31.5-36.5); Mean Corpuscular Volume 93 fL (80-100); Mean Platelet Volume 10.1 fL (9.1-12.4); NEUTROPHILS ABSOLUTE AUTO 9.12 K/mm3 (1.96-9.15); NEUTROPHILS PERCENT AUTO 91 % (41-73); Platelet Count 515 K/mm3 (150-400); RDW Coefficient Variation 13.3 % (11.7-14.2); RDW Standard Deviation 45.2 fL (35.1-46.3); Red Blood Cell Count 2.73 M/mm3 (4.30-5.90); White Blood Cell Count 10.03 K/mm3 (4.00-11.30)
[2024-12-08 05:02] LABS: Albumin, Blood 2.2 g/dL (3.4-5.0); Albumin/Globulin Ratio 0.6 (0.8-1.8); Bilirubin, Total 0.2 mg/dL (0.1-1.0); Bun/Creatinine Ratio 42.5 (12.0-20.0); Creatinine, Blood 0.61 mg/dL (0.60-1.20); Globulin, Blood 3.9 g/dL (2.2-4.0); Magnesium, Blood 2.1 mg/dL (1.6-2.4); Phosphorus, Blood 3.5 mg/dL (2.5-4.9); Potassium, Blood 3.8 mmol/L (3.5-5.5); Total Protein, Blood 6.1 g/dL (6.4-8.2)
--- NOTE | 2024-12-08 05:55 | NUR ---
SHIFT SUMMARY: PT REMAINS INTUBATED AND SEDATED, PT ORIENTED TO SELF, ABLE TO FOLLOW COMMANDS. PT OPENS EYES AND WILL NOD OR SHAKE HEAD TO SIMPLE QUESTIONS AND PROMPTS. EASILY AWAKENS TO ANY CARE OR STIMULI. PT SBP REMAINS IN HIGH 90S-LOW 100S. MAP MAINTAINED >65. LEVOPHED DC'D AT ABOUT 0130 THIS MORNING, SEE EMAR. PT HR 70S-80S. SINUS. LUNGS CLEAR, DIMINISHED AT BASES. VENT SETTINGS AT 14/375/8/35% WITH SATS >90%. PT HAS OG TUBE IN PLACE, INFUSING VHP AT GOAL 20ML/HR. TEMP ARAJUO IN PLACE, DRAINING TO GRAVITY. PT HAS RIJ INFUSING PROPOFOL AT 55 MCG/KG/MIN. THIS RN TO REPORT TO ONCOMING RN. PLAN OF CARE REVIEWED.
[2024-12-08] MEDS ORDERED: Multivitamins-Minerals Liquid 15 ML Oral Syringe PT SCH (09:00)
[2024-12-08] MEDS ORDERED: Thiamine HCl 100 MG Tab PT SCH (09:00)
--- NOTE | 2024-12-08 10:53 | NUR ---
SUMMARY OF MORNING: IN TO ROUND AROUND 0900, TUBE FEEDING STOPPED AND PROPOFOL TITRATING DOWN, ON SPONTANEOUS. 1028 PT EXTUBATED, WITH RT BENI, LORRI AND VINCENZO IN ATTENDANCE. TOLERATED WELL, WENT TO NC @ 6L FOR SEVERAL MINUTES WAS >95% SATS. WANTED PT ON BIPAP, SETTINGS ADJUSTED, NOW AT 14/6 WITH 2L SATS 96%.
--- NOTE | 2024-12-08 12:00 | NUR ---
PLACED PATIENT ON 3L NC OFF BIPAP FOR NOW. WILL DO BEDSIDE SWALLOW EVAL.
--- NOTE | 2024-12-08 12:08 | NUR ---
SPiritual Care Visit | Pt. request Pt. is resting but responds when I enter the room. Pt. is on a Bi-pap but is otherwise fully awake and pleasant. Facilitated a life review. Pt. displayed evidence of engagement and motivatioin to get better so he could "go home." Soncsidered matetrs of marialuisa and belief. Prayed with the Pt. Pt. verbalized gratitude for [facility] piritual care visit and welcomed this engineer soils to return.
[2024-12-08] MEDS ORDERED: Cefepime HCl 1,000 MG in NS 100 ML IV SCH (16:00)
--- NOTE | 2024-12-08 18:46 | NUR ---
PT WAS INTUBATED AND SEDATED AT ONSET OF SHIFT. PT WAS ON 55MCG/KG/HR ON PROPOFOL BUT ALERT AND FOLLOWING COMMANDS. DR. HALL ASSESSED PT AND PER HIS ORDERS, PT WAS EXTUBATED AT 1020. PT TOLERATED WELL, HE WAS ON BIPAP AND NC 6L. HIS BASELINE IS NC 7L AT HOME. O2 WAS WAS 96-99% ON 3L NC, TITRATED O2 DOWN TO 2L AND HIS O2 WAS LOW 80S, PT HAS BEEN ON NC 3L ONLY SINCE 1200 AND HIS O2 IS ABOVE 92%. PT IS A/O X4, VOCALIZES NEEDS, AND USES CALL LIGHT APPROPRIATELY. PT HAS A RIGHT IJ CENTRAL LINE AND TWO PIVS IN LEFT ARM. PATIENT HAS ARAUJO PLACED, FLOWING TO GRAVITY AND HAS AN OUTPUT OF >1000MLS. PT IS ON LIQUID DIET AND TOLERATING WELL. JESSICA WAS DC'D AT 1000. WILL REPORT TO ONCOMING NURSE.
[2024-12-08] MEDS ORDERED: MethylPREDNISolone Sod Succ 125 MG Vial IV SCH (21:00)
[2024-12-08 21:05] LABS: Vancomycin, Trough 22.3 ug/mL (5.0-10.0)
[2024-12-08] MEDS ORDERED: Vancomycin HCL 1,000 MG in NS 250 ML IV SCH (21:30)
[2024-12-09] VITALS (11 sets, daily range): BP systolic 125–161; BP diastolic 76–98
[2024-12-09 04:22] LABS: BASOPHILS ABSOLUTE AUTO 0.01 K/mm3 (0.00-0.23); BASOPHILS PERCENT AUTO 0 % (0-2); EOSINOPHILS PERCENT AUTO 0 % (0-6); Hematocrit 26.4 % (37.0-53.0); Hemoglobin 8.4 g/dL (13.5-17.5); IMMATURE GRAN ABSOLUTE AUTO 0.13 K/mm3 (0.00-0.10); IMMATURE GRAN PERCENT AUTO 1 % (0-1); LYMPHOCYTES ABSOLUTE AUTO 0.58 K/mm3 (0.84-5.20); LYMPHOCYTES PERCENT AUTO 4 % (21-46); MONOCYTES ABSOLUTE AUTO 0.76 K/mm3 (0.16-1.47); MONOCYTES PERCENT AUTO 6 % (4-13); Mean Corpuscular HGB 29.9 pg (26.0-34.0); Mean Corpuscular HGB Conc 31.8 g/dL (31.5-36.5); Mean Corpuscular Volume 94 fL (80-100); Mean Platelet Volume 9.9 fL (9.1-12.4); NEUTROPHILS PERCENT AUTO 89 % (41-73); Platelet Count 518 K/mm3 (150-400); RDW Coefficient Variation 13.2 % (11.7-14.2); RDW Standard Deviation 45.6 fL (35.1-46.3); Red Blood Cell Count 2.81 M/mm3 (4.30-5.90); White Blood Cell Count 13.38 K/mm3 (4.00-11.30)
[2024-12-09 04:43] LABS: Albumin, Blood 2.2 g/dL (3.4-5.0); Albumin/Globulin Ratio 0.6 (0.8-1.8); Bilirubin, Total 0.2 mg/dL (0.1-1.0); Bun/Creatinine Ratio 42.8 (12.0-20.0); Calcium, Blood 8.9 mg/dL (8.5-10.1); Creatinine, Blood 0.51 mg/dL (0.60-1.20); Globulin, Blood 3.7 g/dL (2.2-4.0); Phosphorus, Blood 2.5 mg/dL (2.5-4.9); Potassium, Blood 4.2 mmol/L (3.5-5.5); Total Protein, Blood 5.9 g/dL (6.4-8.2)
--- NOTE | 2024-12-09 05:53 | NUR ---
SHIFT SUMMARY: PT IS A&O X4, ABLE TO MAKE NEEDS KNOWN, MAKE APPROPRIATE CONVERSATION, AND ENGAGE IN CARE. PT WAS EXTUBATED ON 12/08/24 DURING DAY SHIFT, HAS TOLERATED BEING ON 3L O2 VIA NC WELL SINCE. PT USED CPAP THROUGHOUT THE NIGHT WITH NO ISSUES. SBP 120-140S. HR 70-80S, SINUS. LUNGS SOUNDS CLEAR IN UPPER LOBES, COARSNESS AUSCULTATED IN LOWER LOBES/DIMINISHED.O2 SATS MAINTAINED >95%. PT HAD BM AT START OF SHIFT, ABLE TO USE BEDSIDE COMMODE AND TRANSFER TO AND FROM BED. PT USES URINAL INDEPENDENTLY. VAN DC'D THIS SHIFT. PT HAS CENTRAL LINE TO RIJ. PERIPHERAL LINE TO LAC. NOTHING INFUSING AT THIS TIME. THIS RN TO CONTINUE TO MONITOR.
[2024-12-09 11:06] LABS: Base Excess Venous 15.3 mmol/L; Bicarbonate Venous 36.8 mmol/L (24.0-30.0); PCO2 Venous 64.3 mmHg (38-42)
--- NOTE | 2024-12-09 17:15 | NUR ---
7910- THIS RN RECEIVED REPORT FROM VINCENZO IN ICU.
--- NOTE | 2024-12-09 17:18 | NUR ---
1715- THIS RN CALLED [facility] AND INFORMED THEM THAT PT HAS BEEN ON 2L VIA NC TODAY. THIS RN WAS INFORMED THAT PT'S BL=7L. RN GAVE COPD EDUCATION REGARDING THE USE OF 7L WITH A PT THAT HAS COPD. THIS RN WAS INFORMED BY ICU THAT WITH P.T. AND O.T. THIS SHIFT, PT ONLY REQUIRED 2L O2 VIA NC. RN INFORMED UVNR THAT IT WAS UNSURE WHAT PT'S NEW BL OF O2 WILL BE, BUT THAT PT IS CURRENTLY DOING WELL ON 2L VIA NC. UVNR VERBALIZED UNDERSTANDING.
--- NOTE | 2024-12-09 18:13 | NUR ---
PT TRANSFER: PT STATED NAUSEA AT 1715, ADMINISTERED ZOFRAN AND PT REPORTED REDUCED NAUSEA AND ATE 100% OF DINNER. PT TRANSFERRED TO BS WITH NURSE ASSIST AND HAD A BM. PT REPORTED DIZZINESS AND INCREASED 02 TO 4L VIA NC WHILE AMBULATING. TRANSFERRED PT TO MEDICAL FLOOR AT 1800 AND GAVE REPORT TO MONTSERRAT POPE RN.
--- NOTE | 2024-12-09 18:16 | NUR ---
1807- PT ARRIVED TO MEDICAL FLOOR IN STABLE CONDITION ON 2L VIA NC. TWO RN SKIN CHECK PERFORMED WITH STORMY MARTINEZ.
[2024-12-09] MEDS ORDERED: NS 250 ML IV PRN (21:20)
[2024-12-10 02:43] VITALS: BP 101/63
[2024-12-10 05:44] LABS: Hematocrit 28.7 % (37.0-53.0); Hemoglobin 8.9 g/dL (13.5-17.5); Mean Corpuscular HGB 30.2 pg (26.0-34.0); Mean Corpuscular Volume 97 fL (80-100); Mean Platelet Volume 9.8 fL (9.1-12.4); NRBC ABSOLUTE 0.02 K/mm3 (0.00-0.02); NRBC Auto 0.1 /100 WBC (0.0-0.2); Platelet Count 480 K/mm3 (150-400); RDW Coefficient Variation 13.2 % (11.7-14.2); RDW Standard Deviation 47.3 fL (35.1-46.3); Red Blood Cell Count 2.95 M/mm3 (4.30-5.90); White Blood Cell Count 14.21 K/mm3 (4.00-11.30)
[2024-12-10 06:10] LABS: Albumin, Blood 2.1 g/dL (3.4-5.0); Albumin/Globulin Ratio 0.6 (0.8-1.8); Bilirubin, Total 0.2 mg/dL (0.1-1.0); Creatinine, Blood 0.61 mg/dL (0.60-1.20); Globulin, Blood 3.4 g/dL (2.2-4.0); Magnesium, Blood 1.8 mg/dL (1.6-2.4); Phosphorus, Blood 2.6 mg/dL (2.5-4.9); Potassium, Blood 3.4 mmol/L (3.5-5.5); Total Protein, Blood 5.5 g/dL (6.4-8.2)
--- NOTE | 2024-12-10 06:25 | NUR ---
SHIFT SUMMARY: Pt is admitted for Acute respiratory failure and is a full code. Is alert and able to make needs known. ADLs have been SBA. denies pain or discomfort when asked. Power glide to left upper is patent with dressing that is CDI. on 2lpm of O2 via nc while awake. At HS applied bipap and started with 2lpm bleed in. O2 was turned up to 2.5 as he was dropping to 85%. Respiratory noted that after a short time he was still dropping to about 85% on 2.5 and turned O2 up to 5lpm for the bleed in. he has been sating 92-93%. Will desat with exertion.
[2024-12-10 07:16] VITALS: BP 108/73
[2024-12-10] MEDS ORDERED: Potassium Chloride 20 MEQ TabCR PO ONE (08:00)
[2024-12-10] MEDS ORDERED: PredniSONE 20 MG Tab PO SCH (09:00)
[2024-12-10 11:40] VITALS: BP 138/71
--- NOTE | 2024-12-10 16:35 | NUR ---
DISCHARGE NOTE PT DISCHARGED BACK TO [facility]. REPORT GIVEN TO [facility] NURSE. PG REMOVED. DISCHARGE PACKET PROVIDED TO THE CAR SALESMAN. PERSONAL BELONGINGS RETURNED.
[2024-12-11 17:28] LABS: 6-ACETYLMORPHINE, URN, QUANT <10 ng/mL; CODEINE, URN, QUANT <20 ng/mL; HYDROCODONE, URN, QUANT <20 ng/mL; HYDROMORPHONE, URN, QUANT <20 ng/mL; MORPHINE, URN, QUANT <20 ng/mL; NORHYDROCODONE, URN, QUANT <20 ng/mL; NOROXYCODONE, URN, QUANT <20 ng/mL; NOROXYMORPHONE, URN, QUANT <20 ng/mL; OXYCODONE, URN, QUANT <20 ng/mL; OXYMORPHONE, URN, QUANT <20 ng/mL
== END 2024-12-10 16:15 | DRG 871 ==
LOC: ER 08:22 → ERHOLD 10:51 → ICUE 10:51 → PCU 12:13 → ICUE 12-06 09:56 → MEDS 12-09 18:00
PROVIDERS: Family Medicine; Student in an Organized Health Care Education/Training Program; ADMIT Hospitalist
PROC: 5A09557 Assistance with Respiratory Ventilation, Greater than 96 Consecutive Hours, Continuous Positive Airway Pressure (ICD-10-PCS; 2024-12-05)
PROC: 3E03329 Introduction of Other Anti-infective into Peripheral Vein, Percutaneous Approach (ICD-10-PCS; principal; 2024-12-06)
PROC: 5A1945Z Respiratory Ventilation, 24-96 Consecutive Hours (ICD-10-PCS; 2024-12-06)
PROC: 0BH17EZ Insertion of Endotracheal Airway into Trachea, Via Natural or Artificial Opening (ICD-10-PCS; 2024-12-06)
PROC: 0D9670Z Drainage of Stomach with Drainage Device, Via Natural or Artificial Opening (ICD-10-PCS; 2024-12-06)
PROC: 02HV33Z Insertion of Infusion Device into Superior Vena Cava, Percutaneous Approach (ICD-10-PCS; 2024-12-06)
DX: A41.50 Gram-negative sepsis, unspecified (principal); J15.69 Pneumonia due to other Gram-negative bacteria; J96.21 Acute and chronic respiratory failure with hypoxia; I25.10 Atherosclerotic heart disease of native coronary artery without angina pectoris; J96.22 Acute and chronic respiratory failure with hypercapnia; J44.0 Chronic obstructive pulmonary disease with (acute) lower respiratory infection; F41.9 Anxiety disorder, unspecified; F32.9 Major depressive disorder, single episode, unspecified; J44.1 Chronic obstructive pulmonary disease with (acute) exacerbation; J45.901 Unspecified asthma with (acute) exacerbation; N28.1 Cyst of kidney, acquired; Q21.10 Atrial septal defect, unspecified; Z68.1 Body mass index [BMI] 19.9 or less, adult; Z99.81 Dependence on supplemental oxygen; Z79.51 Long term (current) use of inhaled steroids; Z79.899 Other long term (current) drug therapy; Z98.49 Cataract extraction status, unspecified eye; Z87.891 Personal history of nicotine dependence
CPT/HCPCS: 0528U; 31720; 36415; 36556; 51702; 71045; 80053; 80202; 82803; 82947; 83735; 83880; 84100; 84484; 85014; 85018; 85025; 85027; 87040; 87070; 87205; 93005; 93010; 94002; 94003; 94640; 94644; 94660; 94664; 94760; 94761; 94762; 96365; 96367; 97162; 97165; 97530; 97535; 99285-25; A9270; C1751; G0480; J0692; J0696; J1171; J1650; J1938; J2060; J2185; J2250; J2270; J2371; J2405; J2470; J2543; J2704; J2919; J3010; J3370; J3475; J7050; J7060; J7120; J7512